=== PATIENT | female | born 1950 | race Caucasian/White ===

== ENCOUNTER 2020-01-17 23:19 | Emergency (ER) | payer OTHER, SELFPAY ==
[2020-01-17 23:24] VITALS: BP 117/65; PULSE 85; RESP 16; TEMP 36.7; O2SAT 100
--- NOTE | 2020-01-17 23:26 | ED.FEMALEGU ---
HPI - Female Genitourinary General Chief complaint: Urogenital-Female Stated complaint: i have some kind of uti Time Seen by Provider: 01/17/20 23:25 Source: patient and RN notes reviewed Mode of arrival: EMS Limitations: no limitations History of Present Illness HPI Narrative: Pt is a 69 y/o female who presents to the ED with c/o a UTI that began (01/12/20) night. Pt states that she did not go to her doctor's appointment because she overslept. Pt states that she has been taking abx for her sx, but she is unable to clarify which abx she is taking. Pt has a hx of CHF and she states that she feels full. Pt also reports fever, dizziness, dyspnea, and vaginal pain, but denies nausea, vomiting, and diarrhea. MD elicited complaint: UTI Onset (ago): day(s) (5) Location of symptoms: vaginal Associated symptoms: shortness of breath and other (vaginal pain, fever, dizziness) Possible : postmenopausal Related Data Home Medications Medication Instructions Recorded Confirmed albuterol sulfate INHALATION 01/18/20 amoxicillin 01/18/20 apixaban [Eliquis] mg 01/18/20 atorvastatin 01/18/20 bupropion HCl PO 01/18/20 carvedilol 01/18/20 fluoxetine mg 01/18/20 furosemide 01/18/20 methylprednisolone mg 01/18/20 nitrofurantoin monohyd/m-cryst 01/18/20 omeprazole 01/18/20 phenazopyridine 01/18/20 sotalol 01/18/20 spironolactone 01/18/20 valacyclovir 01/18/20 Allergies Allergy/AdvReac Type Severity Reaction Status Date / Time No Known Allergies Allergy Unverified 01/18/20 00:14 Review of Systems Review of Systems: All systems reviewed & are unremarkable except as noted in HPI and below Constitutional: Constitutional: Reports fever(s) Respiratory: Respiratory: Reports dyspnea Gastrointestinal: Gastrointestinal: Denies diarrhea, Denies nausea and Denies vomiting Genitourinary: Genitourinary: Reports other (vaginal pain) Neurologic: Reports dizziness PMFSH Past Medical History Medical History (Updated 01/17/20 @ 23:37 by Stella Cota) Anxiety Arthritis ASD (atrial septal defect) Borderline diabetic Cataracts, bilateral CHF (congestive heart failure) Depression Eczema GERD (gastroesophageal reflux disease) Hemorrhoid HTN (hypertension) Hyperlipidemia Mitral valve prolapse Pacemaker Post-menopausal Psoriasis (a type of skin inflammation) Rectal polyp Seasonal allergies Skin cancer Surgical History Surgical History (Updated 01/17/20 @ 23:37 by Stella Cota) H/O congenital atrial septal defect (ASD) repair H/O hemorrhoidectomy History of spinal surgery L4-L5 screws History of tubal ligation Hx of cataract removal with insertion of prosthetic lens Hx of section Hx of tonsillectomy Family History Family History (Updated 06/29/14 @ 07:13 by DOCTOR UNKNOWN) Sibling Hypertension Father Acute myocardial infarction Other Diabetes mellitus Family history of cardiovascular disease Social History Social History (Updated 01/17/20 @ 23:38 by Stella Cota) Smoking status: Unknown if ever smoked Alcohol intake: current Exam Narrative: Exam Narrative: GENERAL: Well-appearing, well-nourished, and in no acute distress. HEAD: Normocephalic, atraumatic. EYES: PERRLA and EOMI. ENT: Nares clear, Mucous membranes moist. NECK: Supple. CHEST: Clear to auscultation. No respiratory distress. HEART: Regular rate and rhythm. No murmur heard. Normal peripheral pulses. ABDOMEN: Soft, non tender, non distended, mild supra pubic pain and tenderness normal active bowel sounds. EXTREMITIES: Normal range of motion. No edema. SKIN: Warm, dry, no rash. NEURO: No focal deficits. Alert and oriented x3. PSYCH: Normal mood and affect. Course Vital Signs Vital signs: Vital Signs Temperature 36.7 C 01/17/20 23:24 Pulse Rate 85 01/17/20 23:24 Respiratory Rate 16 01/17/20 23:24 Blood Pressure 117/65 01/17/20 23:24 Pulse Oximetry 10
[2020-01-18 00:01] VITALS: BP 118/70; PULSE 70; RESP 16; O2SAT 95
[2020-01-18 00:03] LABS: Add Urine Microscopic? YES; Appearance Urine Clear (Clear); Bacteria Urine Trace /hpf; Bilirubin Urine Negative (Negative); Blood Urine 2+ (Negative); Color Urine Amber (Yellow); Glucose Urine UA Negative (Negative); Ketones Urine Negative (Negative); Leukocyte Esterase Ur Negative LEU/UL (Negative); Mucus Urine Rare /lpf; Nitrate Urine Positive (Negative); Protein Urine 1+ mg/dL (Negative); RBC Urine 21-50 /hpf (0-2); Specific Grav Ur 1.012 (1.001-1.035); Squamous Epithelial Cell Urine Many /hpf (Few)
[2020-01-18 00:06] LABS: Basophils Percent Auto 0.4 % (0.2-1.2); Eosinophils Percent Auto 0.1 % (0-4.4); Hematocrit 36.5 % (37.0-47.0); Hemoglobin 12.1 g/dL (12.0-15.0); Immature Granulocyte Absolute 0.06 K/mm3 (0.00-0.031); Immature Granulocyte Percent A 0.6 % (0-0.5); Lymphocytes Absolute Auto 0.38 K/mm3 (0.9-3.2); Lymphocytes Percent Auto 4.1 % (18.3-44.2); Mean Corpuscular HGB Conc 33.2 g/dl (32-36); Mean Corpuscular Hemoglobin 30.9 pg (26-34); Mean Corpuscular Volume 93.4 fl (80-100); Mean Platelet Volume 10.6 fl (7.4-10.4); Monocytes Absolute Auto 0.6 K/mm3 (0.1-0.6); Monocytes Percent Auto 6.1 % (2.6-8.5); Neutrophils Absolute Auto 8.3 K/mm3 (1.3-6.7); Neutrophils Percent Auto 88.7 % (45.5-73.1); Platelet Count Result 184 k/mm3 (150-375); Red Blood Count 3.91 M/mm3 (4.2-5.4); Red Cell Distribution Width 13.5 % (11.5-14.5); White Blood Count 9.3 K/mm3 (4.5-10.0)
[2020-01-18 00:26] LABS: NT Pro B Type Natriuretic Pept 1900 PG/ML (5-100)
[2020-01-18] MEDS: FLUCONAZOLE 150 MG TABLET PO (01:04)
[2020-01-18 01:10] VITALS: BP 148/80; PULSE 72; RESP 16; TEMP 36.6; O2SAT 96
[2020-01-18 01:14] LABS: Blood Urea Nitrogen 54 mg/dL (7-17); Calcium 8.9 mg/dL (8.4-10.2); Carbon Dioxide 24 mmol/L (22-30); Chloride 97 mmol/L (98-107); Estimated CRCL calculation 25 ml/min; Estimated Glomerular Filt Rate 23; Glucose 121 mg/dL (65-105); Potassium 4.5 mmol/L (3.4-5.0); Sodium 132 mmol/L (137-145)
== END 2020-01-18 01:12 | disposition home or self-care (01) ==
PROVIDERS: Emergency Provider Family Medicine; PCP Nurse Practitioner Family
DX: N39.0 Urinary tract infection, site not specified (principal); I50.9 Heart failure, unspecified; M19.90 Unspecified osteoarthritis, unspecified site; Q21.1 Atrial septal defect; R73.03 Prediabetes; K21.9 Gastro-esophageal reflux disease without esophagitis; I11.0 Hypertensive heart disease with heart failure; E78.5 Hyperlipidemia, unspecified; I34.1 Nonrheumatic mitral (valve) prolapse; Z95.0 Presence of cardiac pacemaker; Z85.828 Personal history of other malignant neoplasm of skin; Z87.19 Personal history of other diseases of the digestive system; Z98.49 Cataract extraction status, unspecified eye; Z96.1 Presence of intraocular lens
CPT/HCPCS: 36415; 80048; 81001; 83880; 85025; 87086; 87088; 96374; 99284; A9270; J0696

== ENCOUNTER 2020-06-24 17:06 | Emergency (ER) | payer OTHER, SELFPAY ==
[2020-06-24] VITALS (10 sets, daily range): BP systolic 107–144; BP diastolic 60–74; PULSE 68–96; RESP 10–20; TEMP 36.8; O2SAT 88–97
--- NOTE | ~2020-06-24 | CT_ITS ---
EXAMINATION: CT brain wo con DATE: 06/24/2020 17:35 INDICATION: Head injury post fall in an anticoagulated patient presenting with subsequent dizziness. TECHNIQUE: Computed tomography (CT) of the head was performed without intravenous contrast. Sagittal and coronal reconstructions were performed. The mA was adjusted according to patient size. Iterative reconstruction technique was employed. The dose-length product was 605.33 mGy-cm. COMPARISON: None FINDINGS: Small scalp contusion and laceration with few tiny foci of subcutaneous gas in the right frontal lang on. No fracture. No acute intracranial hemorrhage, acute infarction or abnormal extra axial fluid col lection. There is mild scattered white matter hypoattenuation consistent with chronic small vessel is chemic disease. Ventricles are normal and symmetric. No mass/mass effect. Hyperostosis frontalis. Ch anges of bilateral intraocular lens replacement. The orbits, paranasal sinuses and mastoid air cells are normal. Intracranial calcified cerebral atherosclerosis is noted. IMPRESSION: 1. Right frontal scalp contusion and laceration. No fracture or acute intracranial process. 2. Mild scattered white matter hypoattenuation consistent with chronic small vessel ischemic disease. Reviewed, dictated and finalized at location A. IMPRESSION: 1. Right frontal scalp contusion and laceration. No fracture or acute intracran ial process. 2. Mild scattered white matter hypoattenuation consistent with chronic small ve ssel ischemic disease.
--- NOTE | 2020-06-24 17:24 | ECG_ITS ---
Measurements Intervals [place] Rate: 71 P: -20 CO: 341 QRS: -17 QRSD: 133 T: 30 QT: 442 QTc: 481 Interpretive Statements ELECTRONIC ATRIAL PACEMAKER RIGHT BUNDLE BRANCH BLOCK LOW VOLTAGE- PRECORDIAL LEADS BASELINE ARTIFACT- I, II, III, AVR, AVL, AVF ABNORMAL ECG Electronically Signed On 06-25-2020 6:57:33 CDT by Albert Rodrigez D.O.
--- NOTE | 2020-06-24 17:27 | ED.SYNCOPE ---
HPI - Syncope General Chief Complaint: Syncope Stated Complaint: dizzy, fall, head injury Time Seen by Provider: 06/24/20 17:11 History of Present Illness HPI narrative: Syncopal episode in the shower today. She had just stood up a few moments prior and she was feeling light headed. She fell and struck her forehead. She has a h/o orthostatic hypotension and CHF. No CP, SOB. She has a follow-up appointment [facility] cardiology in 3 days. Related Data Home Medications Medication Instructions Recorded Confirmed albuterol sulfate INHALATION 01/18/20 amoxicillin 01/18/20 apixaban [Eliquis] mg 01/18/20 atorvastatin 01/18/20 bupropion HCl PO 01/18/20 carvedilol 01/18/20 fluoxetine mg 01/18/20 furosemide 01/18/20 methylprednisolone mg 01/18/20 nitrofurantoin monohyd/m-cryst 01/18/20 omeprazole 01/18/20 phenazopyridine 01/18/20 sotalol 01/18/20 spironolactone 01/18/20 valacyclovir 01/18/20 vitamin D3-vitamin K2 tablet PO 06/24/20 Allergies Allergy/AdvReac Type Severity Reaction Status Date / Time No Known Allergies Allergy Unverified 01/18/20 00:14 Review of Systems Review of Systems: All systems reviewed & are unremarkable except as noted in HPI and below Constitutional: Constitutional: Denies chills, Denies fever(s) and Denies weakness Cardiovascular: Cardiovascular: Denies chest pain Respiratory: Respiratory: Denies dyspnea Gastrointestinal: Gastrointestinal: Denies abdominal pain, Denies nausea and Denies vomiting Musculoskeletal: Musculoskeletal: Denies back pain Neurologic: Reports syncope and Reports headache(s) [facility] Past Medical History Medical History Anxiety Arthritis ASD (atrial septal defect) Borderline diabetic Cataracts, bilateral CHF (congestive heart failure) Depression Eczema GERD (gastroesophageal reflux disease) Hemorrhoid HTN (hypertension) Hyperlipidemia Mitral valve prolapse Pacemaker Post-menopausal Psoriasis (a type of skin inflammation) Rectal polyp Seasonal allergies Skin cancer Surgical History Surgical History H/O congenital atrial septal defect (ASD) repair H/O hemorrhoidectomy History of spinal surgery L4-L5 screws History of tubal ligation Hx of cataract removal with insertion of prosthetic lens Hx of section Hx of tonsillectomy Family History Family History Sibling Hypertension Father Acute myocardial infarction Other Diabetes mellitus Family history of cardiovascular disease Social History Social History Smoking status: Unknown if ever smoked Alcohol intake: current Gender identity (if verbalized by the patient): Female Sexual Orientation (if Verbalized by the Patient): Straight or Heterosexual Exam Const: General: healthy appearing, no acute distress and alert Orientation/consciousness: patient oriented x3 HENMT: Other: 3 cm laceration above the right eyebrow Eyes: Pupils: Equal, round and reactive pupils present EOM: EOMs intact bilaterally Neck: Neck: normal visual inspection and no lymphadenopathy Chest: Chest palpation & inspection: no tenderness Resp: Effort & Inspection: normal respiratory effort Auscultation: clear to auscultation bilaterally, no rales, no rhonchi and no wheezes Cardio: Jugular venous distension: no JVD Rate: regular rate Rhythm: regular rhythm Heart sounds: no murmurs GI: Inspection: non-distended GI Palp: Yes Soft to palpation and No Tenderness to palpation present (GI) Skin: General skin exam: normal color Neuro: General: patient oriented x3, moves all extremities and CN's II-XI intact bilaterally Speech: normal speech Extrem: General: normal to inspection and no edema Psych: Appearance: well kempt Affect: normal affect Course
[2020-06-24 17:48] LABS: Basophils Percent Auto 0.4 % (0.2-1.2); Eosinophils Percent Auto 0.3 % (0-4.4); Hematocrit 40.9 % (37.0-47.0); Immature Granulocyte Absolute 0.04 K/mm3 (0.00-0.031); Immature Granulocyte Percent A 0.4 % (0-0.5); Lymphocytes Absolute Auto 1.21 K/mm3 (0.9-3.2); Lymphocytes Percent Auto 12.8 % (18.3-44.2); Mean Corpuscular HGB Conc 34.2 g/dl (32-36); Mean Corpuscular Hemoglobin 32.2 pg (26-34); Monocytes Absolute Auto 0.5 K/mm3 (0.1-0.6); Monocytes Percent Auto 5.6 % (2.6-8.5); Neutrophils Absolute Auto 7.6 K/mm3 (1.3-6.7); Neutrophils Percent Auto 80.5 % (45.5-73.1); Platelet Count Result 330 k/mm3 (150-375); Red Blood Count 4.35 M/mm3 (4.2-5.4); Red Cell Distribution Width 13.2 % (11.5-14.5); White Blood Count 9.4 K/mm3 (4.5-10.0)
[2020-06-24 17:56] LABS: INR 1.5; Prothrombin Time 17.5 Seconds (11.1-14.7)
[2020-06-24 17:57] LABS: Anion Gap 9 mmol/L (8-16); Blood Urea Nitrogen 29 mg/dL (7-17); Calcium 9.5 mg/dL (8.4-10.2); Carbon Dioxide 25 mmol/L (22-30); Chloride 101 mmol/L (98-107); Estimated CRCL calculation 31 ml/min; Estimated Glomerular Filt Rate 32; Glucose 124 mg/dL (65-105); Potassium 3.9 mmol/L (3.4-5.0); Sodium 135 mmol/L (137-145)
[2020-06-24 18:09] LABS: NT Pro B Type Natriuretic Pept 255 PG/ML (5-100); Troponin I < 0.012 ng/mL (0.000-0.034)
== END 2020-06-24 19:14 | disposition home or self-care (01) ==
PROVIDERS: Emergency Provider Emergency Medicine; PCP Nurse Practitioner Family
DX: R55 Syncope and collapse (principal); E86.0 Dehydration; S01.111A Laceration without foreign body of right eyelid and periocular area, initial encounter; M19.90 Unspecified osteoarthritis, unspecified site; I50.9 Heart failure, unspecified; I11.0 Hypertensive heart disease with heart failure; E78.5 Hyperlipidemia, unspecified; I34.1 Nonrheumatic mitral (valve) prolapse; K21.9 Gastro-esophageal reflux disease without esophagitis; F32.9 Major depressive disorder, single episode, unspecified; F41.9 Anxiety disorder, unspecified; Z95.0 Presence of cardiac pacemaker; Z85.828 Personal history of other malignant neoplasm of skin; Z79.01 Long term (current) use of anticoagulants; Z98.49 Cataract extraction status, unspecified eye; Z96.1 Presence of intraocular lens; W18.39XA Other fall on same level, initial encounter
CPT/HCPCS: 12013; 36415; 70450; 80048; 83880; 84484; 85025; 85610; 85730; 93005; 99284

== ENCOUNTER 2021-10-17 15:03 | Outpatient (CLI) | payer OTHER, SELFPAY ==
--- NOTE | ~2021-10-17 | MM_ITS ---
EXAMINATION: MM screening bert BI w estevan HISTORY: Screening mammogram TECHNIQUE: Craniocaudal and mediolateral oblique 3-D tomosynthesis images were obtained and synthetic 2-D images were generated. CAD analysis was submitted and interpreted. COMPARISON: 02/24/2018 screening mammogram BREAST PARENCHYMAL COMPOSITION: There are scattered areas of fibroglandular density. FINDINGS: There is no evidence of suspicious mass, calcification, or architectural distortion to sugg est malignancy in either breast. There has been no suspicious interval change. IMPRESSION: 1. No mammographic evidence of malignancy. 2. Recommend routine screening mammography in one year. BI-RADS Category 1: Negative Reviewed, dictated and finalized at location A. 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
== END 2021-10-17 15:04 | disposition home or self-care (01) ==
LOC: ANHIMG 15:06
PROVIDERS: PCP Nurse Practitioner Family; Visit Provider Nurse Practitioner Family
DX: Z12.31 Encounter for screening mammogram for malignant neoplasm of breast (principal)
CPT/HCPCS: 77063; 77067

== ENCOUNTER 2022-07-22 12:41 | Emergency (ER) | payer OTHER, SELFPAY ==
--- NOTE | ~2022-07-22 | CT_ITS ---
EXAMINATION: CT brain wo con DATE: 07/22/2022 13:20 INDICATION: Head injury. Headache. TECHNIQUE: Computed tomography (CT) of the head was performed without intravenous contrast. The mA wa s adjusted according to patient size. Iterative reconstruction technique was employed. The dose-lengt h product was 605.33 mGy-cm. COMPARISON: Head CT 06/24/2020 FINDINGS: There are scattered areas of low attenuation in the cerebral white matter. There is no intr acranial hemorrhage, acute infarction, or abnormal intracranial mass lesion. The ventricles are samir l in size. There are likely changes of ocular lens replacement surgeries. There is mild mucosal thick ening in the ethmoid sinuses. The mastoid air cells are normal. IMPRESSION: 1. Stable mild nonspecific cerebral white matter disease, which likely represents chronic small vesse l ischemic disease. Reviewed, dictated and finalized at location A. IMPRESSION: 1. Stable mild nonspecific cerebral white matter disease, which likely represen ts chronic small vessel ischemic disease.
[2022-07-22 12:43] VITALS: BP 152/55; PULSE 71; RESP 20; TEMP 37.2; O2SAT 98
--- NOTE | 2022-07-22 14:07 | ED.FALL ---
HPI - Fall General Chief Complaint: Fall Stated Complaint: fall, head trauma, back pain Time Seen by Provider: 07/22/22 13:00 History of Present Illness HPI Narrative: Patient is a 71-year-old female who presents ER status post fall 2 days ago. Patient was walking when she fell backwards and struck her head. No LOC. She does take Eliquis. Over the last 2 days she developed increased aching over the neck and back and continues to have some aching in the back of her head. No change in hearing or vision. No weakness in arm or leg. Patient has been taking Tylenol with only mild improvement of discomfort. Related Data Home Medications Medication Instructions Recorded Confirmed albuterol sulfate 90 mcg/actuation inhalation 01/18/20 aerosol inhaler amoxicillin 500 mg capsule 01/18/20 apixaban 5 mg tablet (Eliquis) mg 01/18/20 atorvastatin 40 mg tablet 01/18/20 bupropion HCl 150 mg tablet,12 hr PO 01/18/20 sustained-release carvedilol 25 mg tablet 01/18/20 fluoxetine 40 mg capsule mg 01/18/20 furosemide 40 mg tablet 01/18/20 methylprednisolone 4 mg tablets in mg 01/18/20 a dose pack nitrofurantoin 01/18/20 monohydrate/macrocrystals 100 mg capsule omeprazole 40 mg capsule,delayed 01/18/20 release phenazopyridine 100 mg tablet 01/18/20 sotalol 120 mg tablet 01/18/20 spironolactone 25 mg tablet 01/18/20 valacyclovir 500 mg tablet 01/18/20 cholecalciferol (vit D3) 5,500 tablet PO 06/24/20 unit-vit K2 200 mcg tablet Allergies Allergy/AdvReac Type Severity Reaction Status Date / Time No Known Allergies Allergy Verified 07/22/22 12:54 Review of Systems Review of Systems: All systems reviewed & are unremarkable except as noted in HPI and below Constitutional: Constitutional: Denies chills, Denies fatigue and Denies fever(s) Eyes: Eyes: Denies change in vision Musculoskeletal: Musculoskeletal: Reports back pain, Reports myalgias, Denies arthralgias and Denies joint swelling Neurologic: Denies syncope, Reports headache(s), Denies focal weakness and Denies numbness [facility] Past Medical History Medical History (Updated 07/22/22 @ 14:10 by Minh Perales MD) Anxiety Arthritis ASD (atrial septal defect) Borderline diabetic Cataracts, bilateral CHF (congestive heart failure) Depression Eczema GERD (gastroesophageal reflux disease) Hemorrhoid HTN (hypertension) Hyperlipidemia Mitral valve prolapse Pacemaker Post-menopausal Psoriasis (a type of skin inflammation) Rectal polyp Seasonal allergies Skin cancer Surgical History Surgical History H/O congenital atrial septal defect (ASD) repair H/O hemorrhoidectomy History of spinal surgery L4-L5 screws History of tubal ligation Hx of cataract removal with insertion of prosthetic lens Hx of section Hx of tonsillectomy Family History Family History Sibling Hypertension Father Acute myocardial infarction Other Diabetes mellitus Family history of cardiovascular disease Social History Social History Smoking status: Unknown if ever smoked Alcohol intake: current Gender identity (if verbalized by the patient): Female Sexual Orientation (if Verbalized by the Patient): Straight or Heterosexual Exam Narrative: GENERAL: Well-appearing, well-nourished, and in no acute distress. HEAD: Normocephalic, atraumatic. NECK: Supple. No midline tenderness of the cervical spine. Normal range of motion. CHEST: Clear to auscultation. No respiratory distress. HEART: Regular rate and rhythm. Normal peripheral pulses. Back: No reproducible midline tenderness to the T/L-spine. No reproducible tenderness of the paraspinal musculature of the same levels. EXTREMITIES: Normal range of motion. No edema. SKIN: Warm, dry, no rash. NEURO: Alert
== END 2022-07-22 14:23 | disposition home or self-care (01) ==
PROVIDERS: Emergency Provider Emergency Medicine; PCP Nurse Practitioner Family
DX: S09.90XA Unspecified injury of head, initial encounter (principal); W19.XXXA Unspecified fall, initial encounter; M54.6 Pain in thoracic spine; M54.50 Low back pain, unspecified; M19.90 Unspecified osteoarthritis, unspecified site; I11.0 Hypertensive heart disease with heart failure; I50.9 Heart failure, unspecified; K21.9 Gastro-esophageal reflux disease without esophagitis; E78.5 Hyperlipidemia, unspecified; I34.1 Nonrheumatic mitral (valve) prolapse; Z95.0 Presence of cardiac pacemaker; Z85.828 Personal history of other malignant neoplasm of skin; F41.9 Anxiety disorder, unspecified; F32.A Depression, unspecified
CPT/HCPCS: 70450; 99284

== ENCOUNTER 2023-02-24 14:11 | Outpatient (CLI) | payer OTHER, SELFPAY ==
--- NOTE | ~2023-02-24 | US_ITS ---
EXAMINATION: US art doppler w press LE BI DATE: 02/24/2023 15:24 INDICATION: Peripheral vascular disease. TECHNIQUE: Segmental pressures and plethysmographic and Doppler waveforms of the brachial and lower e xtremity arteries were obtained. COMPARISON: None. FINDINGS: Right and left brachial artery pressures of 123 mm Hg and 121 mm Hg, respectively, are concordant (no rmal difference <= 30 mmHg). The right and left high-thigh pressure indices are 1.20 and 1.31, respec tively (normal > 1.2). The right ankle-brachial index (SHELDON) is 1.21 (normal >= 0.9-1). The right great toe-brachial index (T BI) is 0.83 (normal >= 0.6-0.8). The right lower extremity segmental pressure gradients are normal (n ormal gradients <= 20-30 mmHg between adjacent levels on the same leg or the same levels on the two l egs). Arterial waveforms are triphasic at the right superficial femoral artery and biphasic at the re maining biphasic right lower limb with brisk systolic upstrokes throughout. The left SHELDON is 1.23. The left TBI is 0.55. The left lower extremity segmental pressure gradients are mildly increased between the left dorsalis pedis artery and the left [id number] popliteal artery . Arterial waveforms are triphasic at the left common femoral, popliteal and dorsalis pedis arteries and biphasic at the left superficial femoral and posterior tibial arteries, all with brisk systolic u pstrokes. IMPRESSION: 1. Mild arterial occlusive disease to the left lower limb with normal SHELDON but mildly decreased left T BI. 2. No significant arterial occlusive disease to the right lower limb with normal right SHELDON and TBI. Reviewed, dictated and finalized at location A. IMPRESSION: 1. Mild arterial occlusive disease to the left lower limb with normal SHELDON but m ildly decreased left TBI. 2. No significant arterial occlusive disease to the right lower limb with samir l right SHELDON and TBI.
== END 2023-02-24 14:12 | disposition home or self-care (01) ==
PROVIDERS: PCP Emergency Medicine; Visit Provider Emergency Medicine
DX: I73.9 Peripheral vascular disease, unspecified (principal)
CPT/HCPCS: 93923

== ENCOUNTER 2023-09-08 11:36 | Outpatient (CLI) | payer OTHER, SELFPAY ==
--- NOTE | ~2023-09-08 | MM_ITS ---
EXAMINATION: MM screening bert BI w estevan HISTORY: Screening TECHNIQUE: Craniocaudal and mediolateral oblique 3-D tomosynthesis images were obtained and synthetic 2-D images were generated. CAD analysis was submitted and interpreted. COMPARISON: Comparison to multiple prior studies sequentially, with oldest reviewed study dated 02/24. BREAST PARENCHYMAL COMPOSITION: There are scattered areas of fibroglandular density. FINDINGS: There is no evidence of suspicious mass, calcification, or architectural distortion to sugg est malignancy in either breast. There has been no suspicious interval change. IMPRESSION: 1. No mammographic evidence of malignancy. 2. Recommend routine screening mammography in one year. BI-RADS Category 1: Negative Reviewed, dictated and finalized at location A. 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
== END 2023-09-08 11:37 | disposition home or self-care (01) ==
LOC: CHSIMG 11:38
PROVIDERS: PCP Emergency Medicine; Visit Provider Emergency Medicine
DX: Z12.31 Encounter for screening mammogram for malignant neoplasm of breast (principal)
CPT/HCPCS: 77063; 77067

== ENCOUNTER 2023-09-22 01:23 | Day surgery (SDC) | payer OTHER, SELFPAY ==
[2023-09-17 13:40] VITALS: BMI 28.3
--- NOTE | 2023-09-18 14:09 | SUR.PREOP ---
Patient called regarding upcoming procedure. No answer- message left with arrival time and phone number.
[2023-09-22 07:24] VITALS: BP 141/63; PULSE 91; RESP 18; TEMP 36.3; O2SAT 91; BMI 28.0
--- NOTE | 2023-09-22 07:30 | PM.HPGS ---
History of Present Illness History of Present Illness Consent: Risks, benefits, and alternatives have been discussed and questions answered. Patient agrees to proceed with procedure. Chief complaint: neoplasm screening Narrative: Angela Field is a 73 year old female Presents for screening colonoscopy. Patient's current weight appetite and bowel movements are normal. Patient denies abdominal pain. She does notice occasional bright red blood per rectum attributed to hemorrhoids. Patient reports in the distant past she was found to have colon polyps. Most recent colonoscopy 2010. She may have had a benign hyperplastic polyp. Review of Systems Review of Systems: Review of systems noncontributory. [facility] Past Medical History Medical History Anxiety Arthritis ASD (atrial septal defect) Borderline diabetic Cataracts, bilateral CHF (congestive heart failure) Depression Eczema GERD (gastroesophageal reflux disease) Hemorrhoid HTN (hypertension) Hyperlipidemia Mitral valve prolapse Pacemaker Post-menopausal Psoriasis (a type of skin inflammation) Rectal polyp Seasonal allergies Skin cancer Surgical History Surgical History H/O congenital atrial septal defect (ASD) repair H/O hemorrhoidectomy History of spinal surgery L4-L5 screws History of tubal ligation Hx of cataract removal with insertion of prosthetic lens Hx of section Hx of tonsillectomy Family History Family History Sibling Hypertension Father Acute myocardial infarction Other Diabetes mellitus Family history of cardiovascular disease Social History Social History Smoking status: Never smoker Alcohol intake: never Substance use: never Substance use type: does not use Lack of Transportation: No Lack of Food: Never True Current Housing: I Have Housing Concerned About Future Housing: No Difficulty Paying Gas/Electric Bills: No Difficulty Paying for Meds: No Currently Unemployed: No Education: Decline to Answer Difficulty w/ Childcare or Family Care: No Living arrangements: with family Gender identity (if verbalized by the patient): Female Sexual Orientation (if Verbalized by the Patient): Straight or Heterosexual Spiritual care concerns: No Meds Home Medications and Allergies Home Medications Medication Instructions Recorded Confirmed Type captopril 25 mg tablet 25 mg PO HS 09/02/22 09/17/23 History apixaban 5 mg tablet (Eliquis) 5 mg PO BID 12/31/22 09/17/23 History aspirin 81 mg tablet,delayed 81 mg PO DAILY 12/31/22 09/17/23 History release atomoxetine 60 mg capsule 60 mg PO QAM 12/31/22 09/17/23 History atorvastatin 80 mg tablet 80 mg PO QHS 12/31/22 09/17/23 History carvedilol 6.25 mg tablet 6.25 mg PO QAM 12/31/22 09/17/23 History cholecalciferol (vitamin D3) 1,250 1,250 mcg PO WEEKLY 12/31/22 09/17/23 History mcg (50,000 unit) capsule fluoxetine 40 mg capsule 40 mg PO QAM 12/31/22 09/17/23 History furosemide 40 mg tablet 40 mg PO BID 12/31/22 09/17/23 History omeprazole 40 mg capsule,delayed 40 mg PO DAILY 12/31/22 09/17/23 History release sotalol 120 mg tablet 120 mg PO QPM 12/31/22 09/17/23 History spironolactone 25 mg tablet 25 mg PO QAM 12/31/22 09/17/23 History valacyclovir 500 mg tablet 500 mg PO DAILY 12/31/22 09/17/23 History [facility] Rx Plus Lancet) [facility] Verio test strips) dapagliflozin propanediol 10 mg 10 mg PO QAM #90 tabs 04/29/23 09/17/23 Rx tablet (Farxiga) bupropion HCl 150 mg tablet,12 hr See Rx Instructions .Route 08/21/23 09/17/23 Rx sustained-release .COMPLEX #180 tabs carvedilol 6.25 mg tablet 12.5 mg PO QPM 09/17/23 1
[2023-09-22 07:34] LABS: Glucose Point of Care 89 mg/dl (65-105)
[2023-09-22] MEDS: LACTATED RINGERS 1,000 ML 150 ML IV CONT (07:41)
--- NOTE | 2023-09-22 08:14 | WPDANESEPPF ---
Anes - Initial Pre Proc Eval Procedure: Operation Date: 09/22/23 08:30 Proposed Procedures p Screening Colonoscopy - Jori Greer MD Date/Time: 09/22/23 08:14 Surgeon: Jori Greer MD Pre Op Diagnosis: neoplasm screening Patient Data Age: 73 Gender: F Height: 1.63 m Weight: 74 kg Last Vital Signs Temp 97.4 F L 09/22/23 07:24 Pulse 91 09/22/23 07:24 Resp 18 09/22/23 07:24 BP 141/63 H 09/22/23 07:24 Pulse Ox 91 09/22/23 07:24 O2 Del Method Room Air 09/22/23 07:24 Allergies Allergy/AdvReac Type Severity Reaction Status Date / Time adhesive tape Allergy Intermediate Rash Verified 09/17/23 13:42 Home Medications Medication Instructions Recorded Confirmed Type captopril 25 mg tablet 25 mg PO HS 09/02/22 09/17/23 History apixaban 5 mg tablet (Eliquis) 5 mg PO BID 12/31/22 09/17/23 History aspirin 81 mg tablet,delayed 81 mg PO DAILY 12/31/22 09/17/23 History release atomoxetine 60 mg capsule 60 mg PO QAM 12/31/22 09/17/23 History atorvastatin 80 mg tablet 80 mg PO QHS 12/31/22 09/17/23 History carvedilol 6.25 mg tablet 6.25 mg PO QAM 12/31/22 09/17/23 History cholecalciferol (vitamin D3) 1,250 1,250 mcg PO WEEKLY 12/31/22 09/17/23 History mcg (50,000 unit) capsule fluoxetine 40 mg capsule 40 mg PO QAM 12/31/22 09/17/23 History furosemide 40 mg tablet 40 mg PO BID 12/31/22 09/17/23 History omeprazole 40 mg capsule,delayed 40 mg PO DAILY 12/31/22 09/17/23 History release sotalol 120 mg tablet 120 mg PO QPM 12/31/22 09/17/23 History spironolactone 25 mg tablet 25 mg PO QAM 12/31/22 09/17/23 History valacyclovir 500 mg tablet 500 mg PO DAILY 12/31/22 09/17/23 History lancets 30 gauge (OneTouch Delica #100 ea 04/27/23 Rx Plus Lancet) blood sugar diagnostic (OneTouch #300 strips 04/28/23 Rx Verio test strips) dapagliflozin propanediol 10 mg 10 mg PO QAM #90 tabs 04/29/23 09/17/23 Rx tablet (Farxiga) bupropion HCl 150 mg tablet,12 hr See Rx Instructions .Route 08/21/23 09/17/23 Rx sustained-release .COMPLEX #180 tabs carvedilol 6.25 mg tablet 12.5 mg PO QPM 09/17/23 09/17/23 History potassium chloride 20 mEq 20 meq PO QPM 09/17/23 09/17/23 History tablet,extended release(part/cryst) (Klor-Con M) potassium chloride 20 mEq 40 meq PO QAM 09/17/23 09/17/23 History tablet,extended release(part/cryst) (Klor-Con M) Laboratory Tests 09/22/23 07:32 POC Capillary Glucose 89 mg/dl (65-105) Patient hx anesthesia problems: none Family hx anesthesia problems: none Results Review: All pre-operative results and documents have been reviewed as part of the pre-operative evaluation. [facility] Past Medical History Medical History Anxiety Arthritis ASD (atrial septal defect) Borderline diabetic Cataracts, bilateral CHF (congestive heart failure) Depression Eczema GERD (gastroesophageal reflux disease) Hemorrhoid HTN (hypertension) Hyperlipidemia Mitral valve prolapse Pacemaker Post-menopausal Psoriasis (a type of skin inflammation) Rectal polyp Seasonal allergies Skin cancer Surgical History Surgical History H/O congenital atrial septal defect (ASD) repair H/O hemorrhoidectomy History of spinal surgery L4-L5 screws History of tubal ligation Hx of cataract removal with insertion of prosthetic lens Hx of section Hx of tonsillectomy Family History Family History Sibling Hypertension Father Acute myocardial infarction Other Diabetes mellitus Family history of cardiovascular disease Social History Social History Smoking status: Never smoker Alcohol intake: never Substance use: never Substance use type: does not use Lack of Transportation: No Lack of Food: Never True Current Housi
[2023-09-22 08:46] VITALS: BP 106/42; PULSE 73; RESP 18; O2SAT 100
[2023-09-22 08:56] VITALS: BP 105/76; PULSE 72; RESP 12; O2SAT 100
[2023-09-22 09:06] VITALS: BP 119/44; PULSE 69; RESP 17; O2SAT 100
== END 2023-09-22 09:12 | disposition home or self-care (01) ==
PROVIDERS: PCP Emergency Medicine; Visit Provider Internal Medicine Gastroenterology
PROC: 0DJD8ZZ Inspection of Lower Intestinal Tract, Via Natural or Artificial Opening Endoscopic (ICD-10-PCS; CPT 45378; principal; 2023-09-22 08:30)
DX: Z12.11 Encounter for screening for malignant neoplasm of colon (principal); K64.4 Residual hemorrhoidal skin tags; K64.8 Other hemorrhoids; I50.9 Heart failure, unspecified; K21.9 Gastro-esophageal reflux disease without esophagitis; E78.5 Hyperlipidemia, unspecified; I11.0 Hypertensive heart disease with heart failure
CPT/HCPCS: 45385; 82948; 88305; J2001; J2704; J7120

== ENCOUNTER 2023-11-20 10:46 | Inpatient (IN) | payer MEDICARE, OTHER, SELFPAY ==
[2023-11-20] VITALS (11 sets, daily range): BP systolic 101–123; BP diastolic 48–65; PULSE 69–76; RESP 12–20; TEMP 36.3–36.9; O2SAT 96–100; BMI 27.8
--- NOTE | ~2023-11-20 | US_ITS ---
EXAMINATION: US venous doppler UE RT DATE: 11/24/2023 11:37 INDICATION: IV infiltration. TECHNIQUE: Paulson scale images with and without compression and Doppler images of the right upper extre mity veins were obtained. COMPARISON: None. FINDINGS: The right internal jugular vein, subclavian vein, axillary vein, brachial veins, basilic vein, radial vein, and ulnar vein are patent. There is superficial venous thrombosis of the right cephalic vein. IMPRESSION: 1. Superficial venous thrombosis of the right cephalic vein. Reviewed, dictated and finalized at location [facility]
--- NOTE | ~2023-11-20 | XR_ITS ---
EXAMINATION: XR chest 2V DATE: 11/20/2023 16:41 INDICATION: Shortness of breath TECHNIQUE: AP and lateral views of the chest are obtained. COMPARISON: 06/14/2018 FINDINGS: The lungs are free of acute opacities. No pleural effusion or pneumothorax. The cardiomedia stinal silhouette is normal. There is severe thoracic spondylosis. Median sternotomy wires are consis tent with prior cardiac surgery. There is a pacemaker of the left chest wall. IMPRESSION: 1. No acute cardiopulmonary abnormality. Reviewed, dictated and finalized at location [facility]
--- NOTE | 2023-11-20 11:06 | ECG_ITS ---
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
[2023-11-20 12:55] LABS: Basophils Percent Auto 0.7 % (0.2-1.2); Eosinophils Absolute Auto 0.1 K/mm3 (0-0.3); Hematocrit 29.4 % (37.0-47.0); Hemoglobin 7.1 g/dL (12.0-15.0); Immature Granulocyte Absolute 0.01 K/mm3 (0.00-0.031); Immature Granulocyte Percent A 0.2 % (0-0.5); Lymphocytes Absolute Auto 1.76 K/mm3 (0.9-3.2); Lymphocytes Percent Auto 29.6 % (18.3-44.2); Mean Corpuscular HGB Conc 24.1 g/dl (32-36); Mean Corpuscular Hemoglobin 16.6 pg (26-34); Mean Corpuscular Volume 68.5 fl (80-100); Mean Platelet Volume 8.8 fl (7.4-10.4); Monocytes Absolute Auto 0.5 K/mm3 (0.1-0.6); Monocytes Percent Auto 7.9 % (2.6-8.5); Neutrophils Absolute Auto 3.6 K/mm3 (1.3-6.7); Neutrophils Percent Auto 60.6 % (45.5-73.1); Platelet Count Result 491 k/mm3 (150-375); Red Blood Count 4.29 M/mm3 (4.2-5.4)
[2023-11-20 13:04] LABS: Ovalocytes 1+ (NORMAL); Platelet Estimate Adequate (Adequate)
[2023-11-20 13:05] LABS: Anisocytosis 2+ (NORMAL); Hypochromasia 1+ (NORMAL); Microcytosis 1+ (NORMAL); Schistocytes 1+ (NORMAL)
[2023-11-20 13:06] LABS: Alanine Aminotransferase 14 U/L (6-35); Albumin Level 4.1 g/dL (3.5-5.1); Alkaline Phosphatase 98 U/L (38-126); Anion Gap 8 mmol/L (8-16); Aspartate Amino Transferase 20 U/L (14-36); Bilirubin,Total 0.5 mg/dL (0.2-1.3); Blood Urea Nitrogen 19 mg/dL (7-17); Calcium 9.5 mg/dL (8.4-10.2); Carbon Dioxide 28 mmol/L (22-30); Chloride 104 mmol/L (98-107); Estimated CRCL calculation 36 ml/min; Estimated Glomerular Filt Rate 44; Glucose 101 mg/dL (65-110); Potassium 3.9 mmol/L (3.4-5.0); Sodium 140 mmol/L (137-145)
--- NOTE | 2023-11-20 15:30 | ED.DIZZY ---
HPI - Dizziness General Chief Complaint: Dizziness Stated Complaint: orthostatic HYpotension Time Seen by Provider: 11/20/23 15:17 History of Present Illness HPI Narrative: Patient is a 73-year-old female with history of sick sinus syndrome, pacemaker in place, on eliquis, prior ASD defect s/p repair here with dizziness and light headedness. Patient notes that she has been struggling with orthostatic hypotension, diagnosed by her primary care doctor for several years. She notes that it seems to be worsening recently. She wants our primary care doctor about a week ago, outpatient labs were ordered, they decreased her Coreg at that time. She is brought back to the clinic today given continued symptoms for a blood pressure check. Orthostatics were positive again in the clinic and she was recommended to come into the emergency department for further evaluation. She denies any chest pain, has been experiencing some shortness of breath which has also been progressive over many months. No bright red blood per rectum or black stools. No abdominal pain. Her last colonoscopy was within the last 6 months, was reportedly normal and advise she no longer needed them given her age. No vaginal bleeding, no hematuria. No trauma. No prior GI bleed, no prior need for blood transfusion. Related Data Home Medications Medication Instructions Recorded Confirmed captopril 25 mg tablet 25 mg PO HS 09/02/22 11/20/23 apixaban 5 mg tablet (Eliquis) 5 mg PO BID 12/31/22 11/20/23 aspirin 81 mg tablet,delayed 81 mg PO DAILY 12/31/22 11/20/23 release atomoxetine 60 mg capsule 60 mg PO QAM 12/31/22 11/20/23 atorvastatin 80 mg tablet 80 mg PO QHS 12/31/22 11/20/23 fluoxetine 40 mg capsule 40 mg PO QAM 12/31/22 11/20/23 furosemide 40 mg tablet 40 mg PO BID 12/31/22 11/20/23 omeprazole 40 mg capsule,delayed 40 mg PO DAILY 12/31/22 11/20/23 release sotalol 120 mg tablet 120 mg PO HS 12/31/22 11/20/23 spironolactone 25 mg tablet 25 mg PO QAM 12/31/22 11/20/23 valacyclovir 500 mg tablet 500 mg PO DAILY 12/31/22 11/20/23 potassium chloride 20 mEq 20 meq PO QPM 09/17/23 11/20/23 tablet,extended release(part/cryst) (Klor-Con M) potassium chloride 20 mEq 40 meq PO QAM 09/17/23 11/20/23 tablet,extended release(part/cryst) (Klor-Con M) carvedilol 12.5 mg tablet 6.25 mg PO QHS 11/16/23 11/20/23 carvedilol 6.25 mg tablet 3.125 mg PO QAM 11/16/23 11/20/23 Allergies Allergy/AdvReac Type Severity Reaction Status Date / Time adhesive tape Allergy Intermediate Rash Verified 11/20/23 10:34 Review of Systems Review of Systems: All systems reviewed & are unremarkable except as noted in HPI and below PMFSH Past Medical History Medical History Anxiety Arthritis ASD (atrial septal defect) Borderline diabetic Cataracts, bilateral CHF (congestive heart failure) Depression Eczema GERD (gastroesophageal reflux disease) Hemorrhoid HTN (hypertension) Hyperlipidemia Mitral valve prolapse Pacemaker Post-menopausal Psoriasis (a type of skin inflammation) Rectal polyp Seasonal allergies Skin cancer Surgical History Surgical History H/O congenital atrial septal defect (ASD) repair H/O hemorrhoidectomy History of spinal surgery L4-L5 screws History of tubal ligation Hx of cataract removal with insertion of prosthetic lens Hx of section Hx of tonsillectomy Family History Family History Sibling Hypertension Father Acute myocardial infarction Other Diabetes mellitus Family history of cardiovascular disease Social History Social History Smoking status: Never smoker Alcohol intake: never Substance use: never Substance use type: does not use Do You Feel Safe in your Home?: Yes Lack of Transpor
[2023-11-20 16:18] LABS: Troponin I < 0.012 ng/mL (0.000-0.034)
--- NOTE | 2023-11-20 16:32 | PC.NURSE ---
Pt taken to xray
--- NOTE | 2023-11-20 16:41 | PC.NURSE ---
Pt returned to room 7
[2023-11-20] MEDS: PANTOPRAZOLE SODIUM IV 40 MG VIAL IV PUSH (16:43)
[2023-11-20 17:34] LABS: Troponin I < 0.012 ng/mL (0.000-0.034)
[2023-11-20] MEDS: SODIUM CHLORIDE 0.9% IV 250 ML 30 ML IV CONT (18:23)
[2023-11-20] MEDS: TUBING, BLOOD PLUM PUMP TUBING 1 EACH XX (18:24)
[2023-11-20 21:48] LABS: Hemoglobin 8.4 g/dL (12.0-15.0)
[2023-11-21] VITALS (13 sets, daily range): BP systolic 101–143; BP diastolic 57–79; PULSE 67–78; RESP 16–20; TEMP 36.4–36.9; O2SAT 94–97
--- NOTE | 2023-11-21 05:35 | PM.IMHP ---
H&P: HPI History of Present Illness Date/Time: 11/21/23 05:35 Chief Complaint: Lightheadedness Narrative: 73-year-old female with a past medical history of pacemaker, ASD repair, atrial fibrillation with prior ablation on chronic anticoagulation with Eliquis, pre diabetes, irritable bowel syndrome with constipation, hemorrhoids, and colon polyps who presented to the ER due to frequent episodes of lightheadedness for 1 week. Patient was evaluated at physician's office and found to have positive orthostatic hypotension with associated shortness of breath. She was sent from the office for evaluation and in the ER was found to be anemic with a hemoglobin of 7.1 but no prior lab comparisons available in our system since 2019 at which time hemoglobin was 14. The patient reports that she has not been able to log into her mobile medical record. She cannot remember password. She does not know what her recent hemoglobin was from a week or so ago. She does report irritable bowel syndrome with constipation. She had a colonoscopy in September which demonstrated internal hemorrhoids and at which time she had removal of anal skin tag. She reports that she had some polyps removed. She has noticed blood-streaked stool usually after she has had hard bowel movements with her constipation. She denies any black stools. In the ER her stool was grossly normal in appearance but Hemoccult was positive. Patient also admits to not eating much meat. She reports that due to her kidneys she is not supposed to eat a large amount of meat in when she does eat meat it is not necessarily red meat. She reports that she recently has been craving spinach. She does not eat much in the way of iron rich foods. She does not take oral iron supplements. She reports that for the last several years she has had episodes of orthostatic hypotension. She does wear support socks. She recently bought I abdominal binder but has not begun using it. She reports drinking plenty of fluids but reports that ever since he was started on for C go 1 year ago she has been having increasing episodes of orthostatic symptoms with lightheadedness on standing. She will often have narrowing of her revision and be near syncopal. She at times will have episodes of confusion with her symptoms had improved after she sits or lays down. She reports that over the last 2-3 months she has had progressive dyspnea on exertion. She has only been able climb about 4 steps without sitting down and resting. She reports that even walking to the bathroom several feet across the room can make her slightly short of breath. She denies any chest pain. She has a both have repeat echocardiogram as outpatient with her locksmith at the end of the month. She sees locksmith at [place]. She has a pacemaker in place. She had outpatient event monitor a couple of months ago. She denies any lower extremity swelling. She will on rare occasion have some mild orthopnea but nothing recently. She denies any hematuria or vaginal bleeding. Review of Systems Review of Systems: 12 systems were reviewed with pertinent positives and negatives per HPI. Except as documented in the HPI, all other systems were reviewed and are negative. [facility] Past Medical History Medical History (Updated 11/21/23 @ 08:43 by Shagufta Cavanaugh DO) Anxiety Arthritis ASD (atrial septal defect) Borderline diabetic Cataracts, bilateral CHF (congestive heart failure) Chronic constipation Depression Eczema GERD (gastroesophageal reflux disease) Hemorrhoid HTN (hypertension) Hyperlipidemia Mitral valve prolapse Pacemaker Due to sick sinus syndrome Peripheral artery disease Mild arterial occlusive disease of left lower limb noted on ABIs January 2023 Post-menopausal Psoriasis (a type of skin inflammation) Rectal polyp Seasonal allergies Skin cancer Surgical History Surgical History H/O congenita
[2023-11-21 06:25] LABS: Mean Corpuscular HGB Conc 26.7 g/dl (32-36); Mean Corpuscular Hemoglobin 18.8 pg (26-34); Mean Corpuscular Volume 70.6 fl (80-100); Mean Platelet Volume 9.2 fl (7.4-10.4); Platelet Count Result 373 k/mm3 (150-375); Red Blood Count 4.25 M/mm3 (4.2-5.4); Red Cell Distribution Width 22.8 % (11.5-14.5); White Blood Count 5.8 K/mm3 (4.5-10.0)
[2023-11-21 06:37] LABS: Anion Gap 6 mmol/L (8-16); Blood Urea Nitrogen 17 mg/dL (7-17); Calcium 8.7 mg/dL (8.4-10.2); Carbon Dioxide 26 mmol/L (22-30); Chloride 109 mmol/L (98-107); Estimated CRCL calculation 43 ml/min; Estimated Glomerular Filt Rate 54; Glucose 87 mg/dL (65-110); Potassium 3.7 mmol/L (3.4-5.0); Sodium 141 mmol/L (137-145)
[2023-11-21 07:20] LABS: Iron 18 ug/dL (37-170)
[2023-11-21 07:29] LABS: Percent Iron Saturation 5 % (20-50)
[2023-11-21 07:43] LABS: Folic Acid 3.8 ng/mL (2.76->20)
[2023-11-21 07:50] LABS: Ferritin 4.72 ng/mL (11.1-264)
[2023-11-21] MEDS: carvediloL 3.125 MG TABLET PO (09:46)
[2023-11-21] MEDS: polyethylene glycoL 3350 17 GM POWD.PACK PO (09:46)
[2023-11-21] MEDS: FLUoxetine HCL 20 MG CAPSULE 40 MG PO (09:46)
[2023-11-21] MEDS: buPROPion HCL SR (12 HR) 150 MG TAB PO ×2 (09:46→20:10)
[2023-11-21] MEDS: SPIRONOLACTONE 25 MG TABLET PO (09:46)
[2023-11-21] MEDS: IRON SUCROSE COMPLEX 500 MG in SODIUM CHLORIDE 0.9% IV 250 ML 78.57 MG IVPB (09:46)
[2023-11-21] MEDS: PANTOPRAZOLE SODIUM IV 40 MG VIAL IV PUSH (09:46)
[2023-11-21] MEDS: valACYclovir HCL 500 MG TABLET PO (09:46)
[2023-11-21] MEDS: POTASSIUM CHLORIDE 20 MEQ ER TABLET 40 MEQ PO (09:46)
--- NOTE | 2023-11-21 14:46 | PM.IMPN ---
Progress Note: A&P Assessment and Plan (1) Symptomatic anemia: Code(s): D64.9 - Anemia, unspecified Status: Acute Assessment and Plan: likely secondary to lack of oral iron supplements and chronic losses due to bleeding hemorrhoids with chronic anticoagulation received 1 unit of packed red blood cells in the ER with improvement in her hemoglobin. continue to trend and monitor Iron panel: iron 18; sat 5%, ferritin 4.72 Venofer and ferrous sulfate (2) Acute gastrointestinal bleeding: Code(s): K92.2 - Gastrointestinal hemorrhage, unspecified Status: Acute Assessment and Plan: hem occult + in ER GI consultation and awaiting recommendations (3) Orthostatic hypotension: Code(s): I95.1 - Orthostatic hypotension Status: Chronic Assessment and Plan: likely exacerbated by her symptomatic anemia fall precautions compression stockings telemetry may be worse due to use of Farxiga with her history of borderline diabetes. check A1c (4) CHF (congestive heart failure): Qualifiers: Heart failure type: unspecified Heart failure chronicity: chronic Qualified Code(s): I50.9 - Heart failure, unspecified Code(s): I50.9 - Heart failure, unspecified Status: Chronic Assessment and Plan: euvolemic. Will hold Lasix given orthostatic hypotension. (5) Chronic constipation: Code(s): K59.09 - Other constipation Status: Chronic Assessment and Plan: Miralax daily Subjective Date/time seen: 11/21/23 14:46 Review of Systems Review of Systems: All systems reviewed & are unremarkable except as noted in HPI and below Exam Narrative: GENERAL: Well-appearing, well-nourished, and in no acute distress. HEAD: Normocephalic, atraumatic. EYES: PERRLA and EOMI. ENT: Nares clear. Mucous membranes moist. NECK: Supple. LUNGS: Clear to auscultation. No respiratory distress. HEART: RRR. Normal peripheral pulses. ABDOMEN: Soft, nontender, nondistended. BS active and present. EXTREMITIES: Normal range of motion. No edema. SKIN: Warm, dry, no rash. NEURO: No focal deficits. Alert and oriented x3. PSYCH: Normal mood and affect. Objective Data Vital Signs Vital Signs: Vital Signs - 24 hr 11/20/23 16:17 11/20/23 18:14 11/20/23 18:36 Temperature 98.5 F 98.5 F Pulse Rate 69 76 73 Respiratory Rate 13 18 18 Blood Pressure 115/49 L 123/58 L 115/54 L Pulse Oximetry 100 98 96 Oxygen Delivery 11/20/23 19:36 11/20/23 20:06 11/20/23 20:04 Temperature 97.6 F 97.6 F 97.6 F Pulse Rate 69 69 71 Respiratory Rate 20 20 20 Blood Pressure 117/48 L 117/48 L 113/48 L Pulse Oximetry 97 97 97 Oxygen Delivery 11/20/23 20:05 11/20/23 20:36 11/20/23 20:00 Temperature 97.6 F 98.2 F Pulse Rate 75 70 Respiratory Rate 20 12 Blood Pressure 101/49 L 118/65 Pulse Oximetry 97 100 Oxygen Delivery Room Air 11/20/23 20:00 11/21/23 00:00 11/21/23 04:00 Temperature Pulse Rate 73 73 71 Respiratory Rate Blood Pressure Pulse Oximetry Oxygen Delivery 11/21/23 05:25 11/21/23 09:43 11/21/23 09:46 Temperature 97.9 F Pulse Rate 72 70 74 Respiratory Rate 20 16 Blood Pressure 131/75 143/58 H Pulse Oximetry 95 97 Oxygen Delivery 11/21/23 08:00 11/21/23 12:00 11/21/23 09:50 Temperature Pulse Rate 67 72 Respiratory Rate Blood Pressure Pulse Oximetry Oxygen Delivery Room Air Intake/Output Intake/Output: Intake & Output 11/18/23 11/19/23 11/20/23 11/21/23 23:59 23:59 23:59 23:59 Intake Total 380 275 Output Total 200 Balance 380 75 Meds/Results Medications: Active Medications Generic Name Dose Route Start Last Admin Trade Name Freq PRN Reason Stop Dose Admin Aspirin 81 mg 11/21/23 09:00 Aspirin 81 Mg Enteric Tablet PO DAILY [facility] Atorvastatin Calcium 80 mg 11/21/23 21:00 Atorvastatin 40 Mg Tablet PO QHS [facility]
[2023-11-21] MEDS: FERROUS SULFATE DRIED 142 MG TABCR PO (18:03)
[2023-11-21] MEDS: POTASSIUM CHLORIDE 20 MEQ ER TABLET PO (18:03)
[2023-11-21] MEDS: ATORVASTATIN 40 MG TABLET 80 MG PO (20:09)
[2023-11-21] MEDS: SOTALOL HCL 40 MG TABLET 120 MG PO (20:09)
[2023-11-21] MEDS: CAPTOPRIL (CAPOTEN) 25 MG TABLET PO (20:10)
[2023-11-21] MEDS: carvediloL 6.25 MG TABLET PO (20:10)
[2023-11-22] VITALS (11 sets, daily range): BP systolic 123–137; BP diastolic 52–80; PULSE 70–96; RESP 14–22; TEMP 36.4–36.7; O2SAT 93–98
[2023-11-22 05:21] LABS: Basophils Absolute Auto 0.1 K/mm3 (0.0-0.1); Basophils Percent Auto 0.8 % (0.2-1.2); Eosinophils Absolute Auto 0.1 K/mm3 (0-0.3); Eosinophils Percent Auto 2.4 % (0-4.4); Hematocrit 30.3 % (37.0-47.0); Hemoglobin 8.1 g/dL (12.0-15.0); Immature Granulocyte Absolute 0.03 K/mm3 (0.00-0.031); Immature Granulocyte Percent A 0.5 % (0-0.5); Lymphocytes Absolute Auto 1.88 K/mm3 (0.9-3.2); Lymphocytes Percent Auto 31.6 % (18.3-44.2); Mean Corpuscular HGB Conc 26.7 g/dl (32-36); Mean Corpuscular Hemoglobin 19.1 pg (26-34); Mean Corpuscular Volume 71.5 fl (80-100); Mean Platelet Volume 8.9 fl (7.4-10.4); Monocytes Absolute Auto 0.5 K/mm3 (0.1-0.6); Monocytes Percent Auto 7.9 % (2.6-8.5); Neutrophils Absolute Auto 3.4 K/mm3 (1.3-6.7); Neutrophils Percent Auto 56.8 % (45.5-73.1); Platelet Count Result 351 k/mm3 (150-375); Red Blood Count 4.24 M/mm3 (4.2-5.4); Red Cell Distribution Width 23.2 % (11.5-14.5)
[2023-11-22 05:28] LABS: Hemoglobin A1C 5.2 % (<5.7)
[2023-11-22 05:37] LABS: Anion Gap 5 mmol/L (8-16); Blood Urea Nitrogen 14 mg/dL (7-17); Calcium 9.2 mg/dL (8.4-10.2); Carbon Dioxide 28 mmol/L (22-30); Chloride 109 mmol/L (98-107); Estimated CRCL calculation 43 ml/min; Estimated Glomerular Filt Rate 54; Glucose 122 mg/dL (65-110); Potassium 4.1 mmol/L (3.4-5.0); Sodium 142 mmol/L (137-145)
[2023-11-22 06:36] LABS: Hypochromasia 3+ (NORMAL); Ovalocytes 2+ (NORMAL); Schistocytes None Seen (NORMAL); Tear Drop Cells 2+ (NORMAL)
[2023-11-22 06:37] LABS: Polychromasia 1+ (NORMAL)
[2023-11-22] MEDS: buPROPion HCL SR (12 HR) 150 MG TAB PO ×2 (08:20→20:58)
[2023-11-22] MEDS: FERROUS SULFATE DRIED 142 MG TABCR PO ×2 (08:20→17:02)
[2023-11-22] MEDS: carvediloL 3.125 MG TABLET PO (08:20)
[2023-11-22] MEDS: SPIRONOLACTONE 25 MG TABLET PO (08:21)
[2023-11-22] MEDS: PANTOPRAZOLE SODIUM IV 40 MG VIAL IV PUSH (08:21)
[2023-11-22] MEDS: polyethylene glycoL 3350 17 GM POWD.PACK PO (08:21)
[2023-11-22] MEDS: POTASSIUM CHLORIDE 20 MEQ ER TABLET 40 MEQ PO (08:21)
[2023-11-22] MEDS: FLUoxetine HCL 20 MG CAPSULE 40 MG PO (08:21)
[2023-11-22] MEDS: valACYclovir HCL 500 MG TABLET PO (08:21)
--- NOTE | 2023-11-22 13:50 | WPDGICN ---
Assessment and Plan Assessment and plan (1) Symptomatic anemia: Code(s): D64.9 - Anemia, unspecified Status: Acute Assessment and Plan: recent colonoscopy unremarkable only hemorrhoids, no need to repeat will proceed with egd, she is on chronic anticoagulation which can explain anemia probably will need to be seen by accredited farm manager (2) Orthostatic hypotension: Code(s): I95.1 - Orthostatic hypotension Status: Chronic Assessment and Plan: better after transfusion (3) Afib: Code(s): I48.91 - Unspecified atrial fibrillation Status: Acute (4) Chronic constipation: Code(s): K59.09 - Other constipation Status: Chronic Assessment and Plan: on hold (5) Occult blood in stools: Code(s): R19.5 - Other fecal abnormalities Status: Acute Assessment and Plan: will assess with egd GI Consult Note Consult date/time: 11/22/23 13:50 Reason for consult: anemia, occult blood stool HPI: Angela Field is a 73 year old female with past medical history of pacemaker, ASD repair, atrial fibrillation with prior ablation on chronic anticoagulation with Eliquis, pre diabetes, irritable bowel syndrome with constipation, hemorrhoids with most recent colonoscopy by Dr Greer exactly 2 months ago, normal colon mucosa only non-bleeing hemorrhoids, had also normal anal skin tag (confirmed by biopsy). She came to the ER due to frequent episodes of lightheadedness for last week.?PCP noted that she had orthostatic hypotension with associated shortness of breath.? She was sent from the office for evaluation and in the ER was found to be anemic with a hemoglobin of 7.1, given blood transfusion, denies melena or overt gib, FOBT +. No recent EGD. Review of Systems Constitutional: Constitutional: Reports fatigue Eyes: Eyes: Denies blurry vision ENT: Reports Normal hearing present Cardiovascular: Cardiovascular: Denies chest pain Respiratory: Respiratory: Denies cough Gastrointestinal: Gastrointestinal: Denies abdominal pain Genitourinary: Genitourinary: Denies dysuria Musculoskeletal: Musculoskeletal: Denies arthralgias and Denies neck pain Integumentary/Breasts: Skin/Breast: Denies dry skin Neurologic: Reports Normal hearing present and Denies weakness Psychiatric: Psychiatric: Denies anxiety Endocrine: Endocrine: Denies change in body appearance Hematologic/Lymphatic: Hematologic/Lymphatic: Denies easy bleeding Allergic/Immunologic: Allergic/Immunologic: Denies urticaria [facility] Past Medical History Medical History (Updated 11/22/23 @ 13:53 by Higinio Sanchez MD) Anxiety Arthritis ASD (atrial septal defect) Borderline diabetic Cataracts, bilateral CHF (congestive heart failure) Chronic constipation Depression Eczema GERD (gastroesophageal reflux disease) Hemorrhoid HTN (hypertension) Hyperlipidemia Mitral valve prolapse Occult blood in stools Pacemaker Due to sick sinus syndrome Peripheral artery disease Mild arterial occlusive disease of left lower limb noted on ABIs January 2023 Post-menopausal Psoriasis (a type of skin inflammation) Rectal polyp Seasonal allergies Skin cancer Surgical History Surgical History H/O congenital atrial septal defect (ASD) repair H/O hemorrhoidectomy History of spinal surgery L4-L5 screws History of tubal ligation Hx of cataract removal with insertion of prosthetic lens Hx of section Hx of tonsillectomy Family History Family History Sibling Hypertension Father Acute myocardial infarction Other Diabetes mellitus Family history of cardiovascular disease Social History Social History (Updated 11/21/23 @ 08:28 by Shagufta Cavanaugh DO) Social History: She lives with her of 42 years. Code status: Full code Surrogate decision maker: S
--- NOTE | 2023-11-22 14:32 | PM.IMPN ---
Progress Note: A&P Assessment and Plan (1) Symptomatic anemia: Code(s): D64.9 - Anemia, unspecified Status: Acute Assessment and Plan: likely secondary to lack of oral iron supplements and chronic losses due to bleeding hemorrhoids with chronic anticoagulation received 1 unit of packed red blood cells in the ER with improvement in her hemoglobin. continue to trend and monitor Iron panel: iron 18; sat 5%, ferritin 4.72 s/p Venofer will continue PO iron TID (2) Acute gastrointestinal bleeding: Code(s): K92.2 - Gastrointestinal hemorrhage, unspecified Status: Acute Assessment and Plan: hem occult + in ER GI consulted - EGD to be done tomorrow (3) Orthostatic hypotension: Code(s): I95.1 - Orthostatic hypotension Status: Chronic Assessment and Plan: likely exacerbated by her symptomatic anemia fall precautions compression stockings telemetry may be worse due to use of Farxiga with her history of borderline diabetes. A1c: 5.2 (4) CHF (congestive heart failure): Qualifiers: Heart failure type: unspecified Heart failure chronicity: chronic Qualified Code(s): I50.9 - Heart failure, unspecified Code(s): I50.9 - Heart failure, unspecified Status: Chronic Assessment and Plan: euvolemic. Will hold Lasix given orthostatic hypotension. (5) Chronic constipation: Code(s): K59.09 - Other constipation Status: Chronic Assessment and Plan: Miralax daily Subjective Date/time seen: 11/22/23 14:32 Interval history: Patient has no complaints this morning, states she is feeling better and was able to ambulate without dizziness or syncope. Denies BM since admission, but no other signs of bleeding. GI to perform EGD tomorrow. Review of Systems Review of Systems: All systems reviewed & are unremarkable except as noted in HPI and below Exam Narrative: GENERAL: Well-appearing, well-nourished, and in no acute distress. HEAD: Normocephalic, atraumatic. EYES: PERRLA and EOMI. ENT: Nares clear. Mucous membranes moist. NECK: Supple. LUNGS: Clear to auscultation. No respiratory distress. HEART: RRR. Normal peripheral pulses. ABDOMEN: Soft, nontender, nondistended. BS active and present. EXTREMITIES: Normal range of motion. No edema. SKIN: Warm, dry, no rash. NEURO: No focal deficits. Alert and oriented x3. PSYCH: Normal mood and affect. Objective Data Vital Signs Vital Signs: Vital Signs - 24 hr 11/21/23 14:52 11/21/23 16:00 11/21/23 19:50 Temperature 98.4 F 97.6 F Pulse Rate 73 78 72 Respiratory Rate 18 16 Blood Pressure 101/79 118/57 L Pulse Oximetry 94 95 Oxygen Delivery 11/21/23 19:44 11/21/23 20:09 11/21/23 20:10 Temperature Pulse Rate 74 74 Respiratory Rate Blood Pressure Pulse Oximetry Oxygen Delivery Room Air 11/21/23 20:00 11/22/23 00:00 11/22/23 04:00 Temperature Pulse Rate 78 80 71 Respiratory Rate Blood Pressure Pulse Oximetry Oxygen Delivery 11/22/23 06:58 11/22/23 08:20 11/22/23 08:00 Temperature 97.5 F L Pulse Rate 71 83 70 Respiratory Rate 14 Blood Pressure 123/52 L Pulse Oximetry 94 Oxygen Delivery 11/22/23 08:00 11/22/23 12:00 11/22/23 13:59 Temperature 97.7 F Pulse Rate 70 96 Respiratory Rate 22 H Blood Pressure 137/63 Pulse Oximetry 93 98 Oxygen Delivery Room Air Intake/Output Intake/Output: Intake & Output 11/19/23 11/20/23 11/21/23 11/22/23 23:59 23:59 23:59 23:59 Intake Total 774 252 0483 Output Total 800 Balance 380 -872 1338 Meds/Results Medications: Active Medications Generic Name Dose Route Start Last Admin Trade Name Mohit PRN Reason Stop Dose Admin Aspirin 81 mg 11/21/23 09:00 Aspirin 81 Mg Enteric Tablet PO DAILY [facility] Atorvastatin Calcium 80 mg 11/21/23 21:00 11/21/23 20:09 Atorvastatin 40 Mg Tablet PO 80 mg
[2023-11-22] MEDS: POTASSIUM CHLORIDE 20 MEQ ER TABLET PO (17:02)
[2023-11-22] MEDS: CAPTOPRIL (CAPOTEN) 25 MG TABLET PO (20:58)
[2023-11-22] MEDS: SOTALOL HCL 40 MG TABLET 120 MG PO (20:58)
[2023-11-22] MEDS: ATORVASTATIN 40 MG TABLET 80 MG PO (20:58)
[2023-11-22] MEDS: carvediloL 6.25 MG TABLET PO (20:58)
[2023-11-23] VITALS (18 sets, daily range): BP systolic 107–146; BP diastolic 51–80; PULSE 63–91; RESP 16–22; TEMP 35.9–36.7; O2SAT 94–99
[2023-11-23 05:02] LABS: Hemoglobin 8.1 g/dL (12.0-15.0); Mean Corpuscular HGB Conc 26.1 g/dl (32-36); Mean Corpuscular Hemoglobin 19.1 pg (26-34); Mean Corpuscular Volume 72.9 fl (80-100); Mean Platelet Volume 9.2 fl (7.4-10.4); Platelet Count Result 350 k/mm3 (150-375); Red Blood Count 4.25 M/mm3 (4.2-5.4); Red Cell Distribution Width 23.9 % (11.5-14.5); White Blood Count 6.6 K/mm3 (4.5-10.0)
[2023-11-23 05:11] LABS: Anion Gap 4 mmol/L (8-16); Blood Urea Nitrogen 13 mg/dL (7-17); Calcium 9.3 mg/dL (8.4-10.2); Carbon Dioxide 29 mmol/L (22-30); Chloride 108 mmol/L (98-107); Estimated CRCL calculation 43 ml/min; Estimated Glomerular Filt Rate 54; Glucose 126 mg/dL (65-110); Potassium 4.9 mmol/L (3.4-5.0); Sodium 141 mmol/L (137-145)
[2023-11-23] MEDS: PANTOPRAZOLE SODIUM IV 40 MG VIAL IV PUSH (08:15)
[2023-11-23] MEDS: valACYclovir HCL 500 MG TABLET PO (08:16)
[2023-11-23] MEDS: carvediloL 3.125 MG TABLET PO (08:16)
--- NOTE | 2023-11-23 11:30 | PC.NURSE ---
To GI Lab via wheelchair.
[2023-11-23] MEDS: LACTATED RINGERS 1,000 ML 150 ML IV CONT (11:40)
--- NOTE | 2023-11-23 12:11 | WPDANESEPPF ---
Anes - Initial Pre Proc Eval Procedure: Operation Date: 11/23/23 13:30 Proposed Procedures p Esophagogastroduodenoscopy - Higinio Sanchez MD Date/Time: 11/23/23 12:11 Surgeon: Gonzalez Madrid MD Pre Op Diagnosis: Symptomatic Anemia/GI Bleed Patient Data Age: 73 Gender: F Height: 1.63 m Weight: 73.6 kg Last Vital Signs Temp 98.0 F 11/23/23 11:30 Pulse 79 11/23/23 11:30 Resp 18 11/23/23 11:30 BP 146/59 H 11/23/23 11:30 Pulse Ox 99 11/23/23 11:30 O2 Del Method Room Air 11/23/23 11:30 Allergies Allergy/AdvReac Type Severity Reaction Status Date / Time adhesive tape Allergy Intermediate Rash Verified 11/23/23 11:38 Home Medications Medication Instructions Recorded Confirmed Type captopril 25 mg tablet 25 mg PO HS 09/02/22 11/23/23 History apixaban 5 mg tablet (Eliquis) 5 mg PO BID 12/31/22 11/23/23 History aspirin 81 mg tablet,delayed 81 mg PO DAILY 12/31/22 11/23/23 History release atomoxetine 60 mg capsule 60 mg PO QAM 12/31/22 11/23/23 History atorvastatin 80 mg tablet 80 mg PO QHS 12/31/22 11/23/23 History fluoxetine 40 mg capsule 40 mg PO QAM 12/31/22 11/23/23 History furosemide 40 mg tablet 40 mg PO BID 12/31/22 11/23/23 History omeprazole 40 mg capsule,delayed 40 mg PO DAILY 12/31/22 11/23/23 History release sotalol 120 mg tablet 120 mg PO HS 12/31/22 11/23/23 History spironolactone 25 mg tablet 25 mg PO QAM 12/31/22 11/23/23 History valacyclovir 500 mg tablet 500 mg PO DAILY 12/31/22 11/23/23 History lancets 30 gauge (OneTouch Delica #100 ea 04/27/23 11/23/23 Rx Plus Lancet) blood sugar diagnostic ([employer] The[employer]Touch #300 strips 04/28/23 11/23/23 Rx Verio test strips) dapagliflozin propanediol 10 mg 10 mg PO QAM #90 tabs 04/29/23 11/23/23 Rx tablet (Farxiga) potassium chloride 20 mEq 20 meq PO QPM 09/17/23 11/23/23 History tablet,extended release(part/cryst) (Klor-Con M) potassium chloride 20 mEq 40 meq PO QAM 09/17/23 11/23/23 History tablet,extended release(part/cryst) (Klor-Con M) bupropion HCl 150 mg tablet,12 hr See Rx Instructions .Route 11/16/23 11/23/23 Rx sustained-release .COMPLEX #180 tabs carvedilol 12.5 mg tablet 6.25 mg PO QHS 11/16/23 11/23/23 History carvedilol 6.25 mg tablet 3.125 mg PO QAM 11/16/23 11/23/23 History Laboratory Tests 11/23/23 04:50 WBC 6.6 K/mm3 (4.5-10.0) RBC 4.25 M/mm3 (4.2-5.4) Hgb 8.1 L g/dL (12.0-15.0) Hct 31.0 L % (37.0-47.0) MCV 72.9 L fl (80-100) MCH 19.1 L pg (26-34) MCHC 26.1 L g/dl (32-36) RDW 23.9 H % (11.5-14.5) Plt Count 350 k/mm3 (150-375) MPV 9.2 fl (7.4-10.4) Sodium 141 mmol/L (137-145) Potassium 4.9 mmol/L (3.4-5.0) Chloride 108 H mmol/L (98-107) Carbon Dioxide 29 mmol/L (22-30) Anion Gap 4 L mmol/L (8-16) BUN 13 mg/dL (7-17) Creatinine 1.00 mg/dL (0.7-1.0) Estim Creat Clear Calc 43 ml/min Estimated GFR 54 L (59 - ) Glucose 126 H mg/dL (65-110) Calcium 9.3 mg/dL (8.4-10.2) Patient hx anesthesia problems: none Family hx anesthesia problems: none Results Review: All pre-operative results and documents have been reviewed as part of the pre-operative evaluation. [facility] Past Medical History Medical History (Updated 11/22/23 @ 13:53 by Higinio Sanchez MD) Anxiety Arthritis ASD (atrial septal defect) Borderline diabetic Cataracts, bilateral CHF (congestive heart failure) Chronic constipation Depression Eczema GERD (gastroesophageal reflux disease) Hemorrhoid HTN (hypertension) Hyperlipidemia Mitral valve prolapse Occult blood in stools Pacemaker Due to sick sinus syndrome Peripheral artery disease Mild arterial occlusive disease of left lower limb noted on ABIs January 2023 Post-menopausal Psoriasis (a type of skin inflammation) Rectal polyp Seasonal allergies Skin cancer Surgical History Surgical History (Reviewed
--- NOTE | 2023-11-23 13:25 | PC.NURSE ---
Returned from GI Lab via stretcher.
[2023-11-23] MEDS: buPROPion HCL SR (12 HR) 150 MG TAB PO ×2 (13:58→20:12)
[2023-11-23] MEDS: FLUoxetine HCL 20 MG CAPSULE 40 MG PO (13:59)
[2023-11-23] MEDS: SPIRONOLACTONE 25 MG TABLET PO (14:00)
--- NOTE | 2023-11-23 14:23 | P.PNIM_ITS ---
Progress Note: A&P Assessment and Plan (1) Symptomatic anemia: Code(s): D64.9 - Anemia, unspecified Status: Acute Assessment and Plan: * likely secondary to lack of oral iron supplements and chronic losses due to bleeding hemorrhoids with chronic anticoagulation * received 1 unit of packed red blood cells in the ER with improvement in her hemoglobin. * continue to trend and monitor * Iron panel: iron 18; sat 5%, ferritin 4.72 * s/p Venofer * will continue PO iron TID (2) Acute gastrointestinal bleeding: Code(s): K92.2 - Gastrointestinal hemorrhage, unspecified Status: Acute Assessment and Plan: * hem occult + in ER * GI consulted - EGD showed no signs of bleeding * resume diet, follow up outpatient * will order stool calprotectin as patient previously diagnosed with IBS and reports occasional mucus with stools (3) Orthostatic hypotension: Code(s): I95.1 - Orthostatic hypotension Status: Chronic Assessment and Plan: * likely exacerbated by her symptomatic anemia * fall precautions * compression stockings * telemetry * may be worse due to use of Farxiga with her history of borderline diabetes. * A1c: 5.2 (4) CHF (congestive heart failure): Qualifiers: Heart failure type: unspecified Heart failure chronicity: chronic Qualified Code(s): I50.9 - Heart failure, unspecified Code(s): I50.9 - Heart failure, unspecified Status: Chronic Assessment and Plan: * euvolemic. * Will hold Lasix given orthostatic hypotension. (5) Chronic constipation: Code(s): K59.09 - Other constipation Status: Chronic Assessment and Plan: * Miralax daily * Mag citrate added today Subjective Date/time seen: 11/23/23 14:23 Interval history: Patient has no complaints this morning, states she is feeling better and was able to ambulate without dizziness or syncope. EGD done today, no signs of bleeding. Resumed regular diet. Can follow up outpatient. Will order stool calprotectin, and plan for d/c tomorrow as long as remains stable. Review of Systems Review of Systems: All systems reviewed & are unremarkable except as noted in HPI and below Exam Narrative: GENERAL: Well-appearing, well-nourished, and in no acute distress. HEAD: Normocephalic, atraumatic. EYES: PERRLA and EOMI. ENT: Nares clear. Mucous membranes moist. NECK: Supple. LUNGS: Clear to auscultation. No respiratory distress. HEART: RRR. Normal peripheral pulses. ABDOMEN: Soft, nontender, nondistended. BS hypoactive. EXTREMITIES: Normal range of motion. No edema. SKIN: Warm, dry, no rash. NEURO: No focal deficits. Alert and oriented x3. PSYCH: Normal mood and affect. Objective Data Vital Signs Vital Signs: Vital Signs - 24 hr 11/22/23 16:00 11/22/23 19:34 11/22/23 20:58 Temperature 98.0 F Pulse Rate 71 96 96 Respiratory Rate 16 Blood Pressure 132/80 Pulse Oximetry 95 Oxygen Delivery 11/22/23 20:58 11/22/23 20:00 11/23/23 00:00 Temperature Pulse Rate 96 76 68 Respiratory Rate Blood Pressure Pulse Oximetry Oxygen Delivery 11/23/23 04:00 11/23/23 06:45 11/23/23 08:16 Temperature 98.0 F Pulse Rate 68 71 67 Respiratory Rate 16
--- NOTE | 2023-11-23 14:23 | PM.IMPN ---
Progress Note: A&P Assessment and Plan (1) Symptomatic anemia: Code(s): D64.9 - Anemia, unspecified Status: Acute Assessment and Plan: likely secondary to lack of oral iron supplements and chronic losses due to bleeding hemorrhoids with chronic anticoagulation received 1 unit of packed red blood cells in the ER with improvement in her hemoglobin. continue to trend and monitor Iron panel: iron 18; sat 5%, ferritin 4.72 s/p Venofer will continue PO iron TID (2) Acute gastrointestinal bleeding: Code(s): K92.2 - Gastrointestinal hemorrhage, unspecified Status: Acute Assessment and Plan: hem occult + in ER GI consulted - EGD showed no signs of bleeding resume diet, follow up outpatient will order stool calprotectin as patient previously diagnosed with IBS and reports occasional mucus with stools (3) Orthostatic hypotension: Code(s): I95.1 - Orthostatic hypotension Status: Chronic Assessment and Plan: likely exacerbated by her symptomatic anemia fall precautions compression stockings telemetry may be worse due to use of Farxiga with her history of borderline diabetes. A1c: 5.2 (4) CHF (congestive heart failure): Qualifiers: Heart failure type: unspecified Heart failure chronicity: chronic Qualified Code(s): I50.9 - Heart failure, unspecified Code(s): I50.9 - Heart failure, unspecified Status: Chronic Assessment and Plan: euvolemic. Will hold Lasix given orthostatic hypotension. (5) Chronic constipation: Code(s): K59.09 - Other constipation Status: Chronic Assessment and Plan: Miralax daily Mag citrate added today Subjective Date/time seen: 11/23/23 14:23 Interval history: Patient has no complaints this morning, states she is feeling better and was able to ambulate without dizziness or syncope. EGD done today, no signs of bleeding. Resumed regular diet. Can follow up outpatient. Will order stool calprotectin, and plan for d/c tomorrow as long as remains stable. Review of Systems Review of Systems: All systems reviewed & are unremarkable except as noted in HPI and below Exam Narrative: GENERAL: Well-appearing, well-nourished, and in no acute distress. HEAD: Normocephalic, atraumatic. EYES: PERRLA and EOMI. ENT: Nares clear. Mucous membranes moist. NECK: Supple. LUNGS: Clear to auscultation. No respiratory distress. HEART: RRR. Normal peripheral pulses. ABDOMEN: Soft, nontender, nondistended. BS hypoactive. EXTREMITIES: Normal range of motion. No edema. SKIN: Warm, dry, no rash. NEURO: No focal deficits. Alert and oriented x3. PSYCH: Normal mood and affect. Objective Data Vital Signs Vital Signs: Vital Signs - 24 hr 11/22/23 16:00 11/22/23 19:34 11/22/23 20:58 Temperature 98.0 F Pulse Rate 71 96 96 Respiratory Rate 16 Blood Pressure 132/80 Pulse Oximetry 95 Oxygen Delivery 11/22/23 20:58 11/22/23 20:00 11/23/23 00:00 Temperature Pulse Rate 96 76 68 Respiratory Rate Blood Pressure Pulse Oximetry Oxygen Delivery 11/23/23 04:00 11/23/23 06:45 11/23/23 08:16 Temperature 98.0 F Pulse Rate 68 71 67 Respiratory Rate 16 Blood Pressure 113/60 Pulse Oximetry 95 Oxygen Delivery 11/23/23 08:28 11/23/23 08:03 11/23/23 11:30 Temperature 98.0 F Pulse Rate 67 70 79 Respiratory Rate 16 18 Blood Pressure 146/59 H Pulse Oximetry 95 99 Oxygen Delivery Room Air Room Air 11/23/23 11:30 11/23/23 13:00 11/23/23 13:10 Temperature Pulse Rate 73 70 70 Respiratory Rate 21 H 22 H Blood Pressure 114/52 L 107/51 L Pulse Oximetry 99 99 Oxygen Delivery Room Air Room Air 11/23/23 13:20 11/23/23 13:23 11/23/23 13:25 Temperature Pulse Rate 68 67 Respiratory Rate 18 18 18 Blood Pressure 116/52 L 121/56 L Pulse Oximetry 99 94 94 Oxygen Delivery Room Air Room Air Room Air 11/23/23 13:3
[2023-11-23] MEDS: FERROUS SULFATE DRIED 142 MG TABCR PO (16:54)
[2023-11-23] MEDS: MAGNESIUM CITRATE 300 ML BTL PO (17:04)
[2023-11-23] MEDS: carvediloL 6.25 MG TABLET PO (20:12)
[2023-11-23] MEDS: ATORVASTATIN 40 MG TABLET 80 MG PO (20:12)
[2023-11-23] MEDS: CAPTOPRIL (CAPOTEN) 25 MG TABLET PO (20:12)
[2023-11-23] MEDS: SOTALOL HCL 40 MG TABLET 120 MG PO (20:12)
[2023-11-24] VITALS: PULSE 96
[2023-11-24 04:00] VITALS: PULSE 67
[2023-11-24 05:51] VITALS: BP 120/74; PULSE 73; RESP 20; TEMP 37.3; O2SAT 97
[2023-11-24 05:51] LABS: Hematocrit 31.8 % (37.0-47.0); Hemoglobin 8.3 g/dL (12.0-15.0); Mean Corpuscular HGB Conc 26.1 g/dl (32-36); Mean Corpuscular Hemoglobin 19.3 pg (26-34); Mean Corpuscular Volume 73.8 fl (80-100); Mean Platelet Volume 9.3 fl (7.4-10.4); Platelet Count Result 369 k/mm3 (150-375); Red Blood Count 4.31 M/mm3 (4.2-5.4); White Blood Count 8.3 K/mm3 (4.5-10.0)
[2023-11-24 06:00] LABS: Anion Gap 5 mmol/L (8-16); Blood Urea Nitrogen 12 mg/dL (7-17); CRP < 0.5 mg/dL (<1.0); Calcium 9.1 mg/dL (8.4-10.2); Carbon Dioxide 29 mmol/L (22-30); Chloride 106 mmol/L (98-107); Estimated CRCL calculation 43 ml/min; Estimated Glomerular Filt Rate 54; Glucose 95 mg/dL (65-110); Potassium 4.4 mmol/L (3.4-5.0); Sodium 140 mmol/L (137-145)
[2023-11-24 07:33] VITALS: BP 125/51; PULSE 72; TEMP 36.9; O2SAT 96
--- NOTE | 2023-11-24 08:48 | WPDANESPN ---
Anes - Prog Note Post-Op Date/Time: 11/24/23 08:48 Cardiovascular status: normal Respiratory status: normal Airway patency: baseline Mental status: baseline Post-Op hydration status: normal Vital Signs: Last Vital Signs Temp 36.9 C 11/24/23 07:33 Pulse 72 11/24/23 07:33 Resp 20 11/24/23 05:51 BP 125/51 L 11/24/23 07:33 Pulse Ox 96 11/24/23 07:33 O2 Del Method Room Air 11/23/23 13:25 Pain Score (VAS): 310 I/O: Intake & Output 11/23/23 11/24/23 11/24/23 23:59 07:59 15:59 Intake Total 660 500 Output Total 900 Balance -240 500 Laboratory Tests 11/24/23 05:32 11/24/23 05:32 11/23/23 11/24/23 23:09 05:32 WBC 8.3 RBC 4.31 Hgb 8.3 L Hct 31.8 L MCV 73.8 L MCH 19.3 L MCHC 26.1 L RDW 25.0 H Plt Count 369 MPV 9.3 Sodium 140 Potassium 4.4 Chloride 106 Carbon Dioxide 29 Anion Gap 5 L BUN 12 Creatinine 1.00 Estim Creat Clear Calc 43 Estimated GFR 54 L Glucose 95 Calcium 9.1 C-Reactive Protein < 0.5 Stool Calprotectin Pending Post-procedural complaints: none Patient Feedback: Patient satisfied with anesthetic care.
[2023-11-24] MEDS: FERROUS SULFATE DRIED 142 MG TABCR PO (09:06)
[2023-11-24] MEDS: ASPIRIN 81 MG ENTERIC TABLET PO (09:07)
[2023-11-24] MEDS: buPROPion HCL SR (12 HR) 150 MG TAB PO (09:08)
[2023-11-24 09:09] VITALS: PULSE 72
[2023-11-24] MEDS: carvediloL 3.125 MG TABLET PO (09:09)
[2023-11-24] MEDS: FLUoxetine HCL 20 MG CAPSULE 40 MG PO (09:11)
[2023-11-24] MEDS: PANTOPRAZOLE SODIUM IV 40 MG VIAL IV PUSH (09:12)
[2023-11-24] MEDS: POTASSIUM CHLORIDE 20 MEQ ER TABLET 40 MEQ PO (09:13)
[2023-11-24] MEDS: SPIRONOLACTONE 25 MG TABLET PO (09:14)
[2023-11-24] MEDS: valACYclovir HCL 500 MG TABLET PO (09:15)
[2023-11-24 11:50] VITALS: BP 134/52; PULSE 71; TEMP 36.6; O2SAT 98
[2023-11-24] MEDS: DICLOFENAC SODIUM 1% 100 GM GEL (*BKC) 1 APPLIC TOPICAL (12:27)
--- NOTE | 2023-11-24 12:50 | PM.DS ---
DS: Admitting Diagnosis Discharge Date 11/24/23 Admitting Diagnosis lightheadedness DS: Discharge Diagnosis Discharge Diagnosis (1) Symptomatic anemia: Code(s): D64.9 - Anemia, unspecified Status: Acute Assessment and Plan: likely secondary to lack of oral iron supplements and chronic losses due to bleeding hemorrhoids with chronic anticoagulation Iron panel: iron 18; sat 5%, ferritin 4.72 s/p Venofer will continue PO iron BIDWM EGD negative for source of bleeding (2) Acute gastrointestinal bleeding: Code(s): K92.2 - Gastrointestinal hemorrhage, unspecified Status: Acute Assessment and Plan: hem occult + in ER GI consulted - EGD showed no signs of bleeding resume diet, follow up outpatient pending stool calprotectin as patient previously diagnosed with IBS and reports occasional mucus with stools (3) Orthostatic hypotension: Code(s): I95.1 - Orthostatic hypotension Status: Chronic Assessment and Plan: likely exacerbated by her symptomatic anemia compression stockings may be worse due to use of Farxiga with her history of borderline diabetes. A1c: 5.2 (4) CHF (congestive heart failure): Qualifiers: Heart failure type: unspecified Heart failure chronicity: chronic Qualified Code(s): I50.9 - Heart failure, unspecified Code(s): I50.9 - Heart failure, unspecified Status: Chronic Assessment and Plan: euvolemic. (5) Chronic constipation: Code(s): K59.09 - Other constipation Status: Chronic Assessment and Plan: stool softener daily Miralax daily large BM last night DS: Summary Hospital Course Hospital Course: Patient is a very pleasant 73 YO female with PMH of pacemaker, ASD repair, atrial fibrillation with prior ablation on chronic anticoagulation with Eliquis, pre diabetes, irritable bowel syndrome with constipation, hemorrhoids, and colon polyps admitted due to frequent episodes of lightheadedness for 1 week. Patient was evaluated at physician's office and found to have positive orthostatic hypotension with associated shortness of breath. She was sent from the office for evaluation and in the ER was found to be anemic with a hemoglobin of 7.1 but no prior lab comparisons available in our system since 2019 at which time hemoglobin was 14. She does report irritable bowel syndrome with constipation. She had a colonoscopy in September which demonstrated internal hemorrhoids and at which time she had removal of anal skin tag. She reports that she had some polyps removed. She has noticed blood-streaked stool usually after she has had hard bowel movements with her constipation. In the ER her stool was grossly normal in appearance but Hemoccult was positive. She reports that for the last several years she has had episodes of orthostatic hypotension. She at times will have episodes of confusion with her symptoms had improved after she sits or lays down. She reports that over the last 2-3 months she has had progressive dyspnea on exertion. She denies any chest pain. She has a both have repeat echocardiogram as outpatient with her personal service workers at the end of the month. She sees personal service workers at [place]. She has a pacemaker in place. She had outpatient event monitor a couple of months ago. She denies any lower extremity swelling. She denies any hematuria or vaginal bleeding. GI consulted and performed EGD which showed no signs of active bleeding or ulcerations. Started on PO iron BIDWM as her iron panel showed iron deficiency. She has not had any syncopal episodes while inpatient. She received 1 unit of PRBC in the ER and her H&H has remained stable above 8 since. She received 1 bag of Venofer. Resumed regular diet. Can follow up outpatient. Ordered stool calprotectin which is still pending. Will d/c home today and follow up with her primary care regarding her borderline hypoglycemia on . Status at Discharge F
[2023-11-29 20:37] LABS: Calprotectin, Stool 180 mcg/g
== END 2023-11-24 13:20 | disposition home or self-care (01) | DRG 812 ==
LOC: ANHED 17:04 → ANH3MEDSUR 17:48 → ANH2MED 19:05
PROVIDERS: Emergency Medicine; Internal Medicine; Internal Medicine Gastroenterology; Student in an Organized Health Care Education/Training Program; Admitting Provider Internal Medicine; Emergency Provider Student in an Organized Health Care Education/Training Program; PCP Emergency Medicine; Visit Provider Nurse Practitioner
PROC: 0DJ08ZZ Inspection of Upper Intestinal Tract, Via Natural or Artificial Opening Endoscopic (ICD-10-PCS; CPT 43235; principal; 2023-11-23 13:30)
DX: D50.9 Iron deficiency anemia, unspecified (principal); K92.2 Gastrointestinal hemorrhage, unspecified; E78.5 Hyperlipidemia, unspecified; I95.1 Orthostatic hypotension; I49.5 Sick sinus syndrome; I11.0 Hypertensive heart disease with heart failure; I50.9 Heart failure, unspecified; I48.91 Unspecified atrial fibrillation; I73.9 Peripheral vascular disease, unspecified; K64.9 Unspecified hemorrhoids; K58.1 Irritable bowel syndrome with constipation; R19.5 Other fecal abnormalities; R73.03 Prediabetes; Z95.0 Presence of cardiac pacemaker; Z79.01 Long term (current) use of anticoagulants; Z79.82 Long term (current) use of aspirin; Z86.010 Personal history of colon polyps; Z98.41 Cataract extraction status, right eye; Z98.42 Cataract extraction status, left eye; Z96.1 Presence of intraocular lens; Z85.828 Personal history of other malignant neoplasm of skin
CPT/HCPCS: 36415; 36430; 71046; 80048; 80053; 82607; 82728; 82746; 83036; 83540; 83550; 83993; 84484; 85014; 85018; 85025; 85027; 86140; 86850; 86900; 86901; 86923; 88305; 93005; 93971; 96374; 99285; A9270; C9113; J1756; J2704; J7050; J7120; P9016

== ENCOUNTER 2023-11-26 21:13 | Emergency (ER) | payer OTHER, SELFPAY ==
--- NOTE | ~2023-11-26 | US_ITS ---
EXAMINATION: US venous doppler UE RT DATE: 11/26/2023 22:11 INDICATION: Right upper limb pain. TECHNIQUE: Grayscale ultrasound images without and with compression and Doppler ultrasound images of the right upper extremity veins were obtained. COMPARISON: Ultrasound 11/24/2023 FINDINGS: The visualized portions of the right internal jugular vein, subclavian vein, axillary vein, brachial veins, basilic vein, and ulnar vein are patent. There is thrombus in the right cephalic and radial ve ins. IMPRESSION: 1. Deep vein thrombosis involving the right radial vein. 2. Superficial vein thrombosis involving the right cephalic vein. Reviewed, dictated and finalized at location E. ING OPERATOR
[2023-11-26 21:28] VITALS: BP 119/93; PULSE 71; RESP 20; TEMP 36.9; O2SAT 99
[2023-11-27 00:19] LABS: Basophils Percent Auto 0.5 % (0.2-1.2); Eosinophils Absolute Auto 0.1 K/mm3 (0-0.3); Eosinophils Percent Auto 1.6 % (0-4.4); Hematocrit 33.8 % (37.0-47.0); Immature Granulocyte Absolute 0.02 K/mm3 (0.00-0.031); Immature Granulocyte Percent A 0.3 % (0-0.5); Lymphocytes Absolute Auto 1.81 K/mm3 (0.9-3.2); Lymphocytes Percent Auto 23.9 % (18.3-44.2); Mean Corpuscular HGB Conc 26.6 g/dl (32-36); Mean Corpuscular Hemoglobin 20.2 pg (26-34); Mean Platelet Volume 9.6 fl (7.4-10.4); Monocytes Absolute Auto 0.5 K/mm3 (0.1-0.6); Monocytes Percent Auto 6.3 % (2.6-8.5); Neutrophils Absolute Auto 5.1 K/mm3 (1.3-6.7); Neutrophils Percent Auto 67.4 % (45.5-73.1); Platelet Count Result 360 k/mm3 (150-375); Red Blood Count 4.45 M/mm3 (4.2-5.4); White Blood Count 7.6 K/mm3 (4.5-10.0)
[2023-11-27 00:29] LABS: Alanine Aminotransferase 14 U/L (6-35); Albumin Level 3.5 g/dL (3.5-5.1); Alkaline Phosphatase 87 U/L (38-126); Anion Gap 8 mmol/L (8-16); Aspartate Amino Transferase 28 U/L (14-36); Bilirubin,Total 0.5 mg/dL (0.2-1.3); Blood Urea Nitrogen 24 mg/dL (7-17); Calcium 9.1 mg/dL (8.4-10.2); Carbon Dioxide 26 mmol/L (22-30); Chloride 103 mmol/L (98-107); Estimated CRCL calculation 39 ml/min; Estimated Glomerular Filt Rate 49; Glucose 96 mg/dL (65-110); Potassium 4.2 mmol/L (3.4-5.0); Sodium 137 mmol/L (137-145)
[2023-11-27 00:32] LABS: INR 1.2; Prothrombin Time 15.5 Seconds (11.1-14.7)
[2023-11-27 01:06] LABS: Platelet Estimate Adequate (Adequate)
[2023-11-27 01:07] LABS: Hypochromasia 1+ (NORMAL); Large Platelets Present; Poikilocytosis 1+ (NORMAL)
[2023-11-27 01:08] LABS: Anisocytosis 1+ (NORMAL); Crenated RBC 1+ (NORMAL); Ovalocytes 1+ (NORMAL); Schistocytes None Seen (NORMAL)
--- NOTE | 2023-11-27 01:18 | ED.GENADULT ---
HPI - General Adult General Chief complaint: Extremity Injury, Upper Stated complaint: blood clot in right arm, pain Time Seen by Provider: 11/26/23 23:30 History of Present Illness HPI narrative: Patient is a 73-year-old female who presents emergency department with chief complaint of pain and swelling in the right upper extremity. The patient reports she had superficial thrombophlebitis reports that she was admitted to the hospital and had to hold her Eliquis due to procedures the patient states she started back her Eliquis on Thursday night and has had several doses of her Eliquis since then patient reports no chest pain denies shortness of breath patient reports that after she had the ultrasound diagnosing with superficial flung thrombophlebitis that the redness has worsened in her forearm and she is concerned of propagation of the clot. Related Data Home Medications Medication Instructions Recorded Confirmed captopril 25 mg tablet 25 mg PO HS 09/02/22 11/23/23 apixaban 5 mg tablet (Eliquis) 5 mg PO BID 12/31/22 11/23/23 aspirin 81 mg tablet,delayed 81 mg PO DAILY 12/31/22 11/23/23 release atomoxetine 60 mg capsule 60 mg PO QAM 12/31/22 11/23/23 atorvastatin 80 mg tablet 80 mg PO QHS 12/31/22 11/23/23 fluoxetine 40 mg capsule 40 mg PO QAM 12/31/22 11/23/23 furosemide 40 mg tablet 40 mg PO BID 12/31/22 11/23/23 omeprazole 40 mg capsule,delayed 40 mg PO DAILY 12/31/22 11/23/23 release sotalol 120 mg tablet 120 mg PO HS 12/31/22 11/23/23 spironolactone 25 mg tablet 25 mg PO QAM 12/31/22 11/23/23 valacyclovir 500 mg tablet 500 mg PO DAILY 12/31/22 11/23/23 potassium chloride 20 mEq 20 meq PO QPM 09/17/23 11/23/23 tablet,extended release(part/cryst) (Klor-Con M) potassium chloride 20 mEq 40 meq PO QAM 09/17/23 11/23/23 tablet,extended release(part/cryst) (Klor-Con M) carvedilol 12.5 mg tablet 6.25 mg PO QHS 11/16/23 11/23/23 carvedilol 6.25 mg tablet 3.125 mg PO QAM 11/16/23 11/23/23 Allergies Allergy/AdvReac Type Severity Reaction Status Date / Time adhesive tape Allergy Intermediate Rash Verified 11/26/23 23:56 Review of Systems Review of Systems: A 10 system review of systems was completed on the patient and is negative except for what is stated in the HPI. Nursing and ancillary documentation was reviewed. [facility] Past Medical History Medical History Anxiety Arthritis ASD (atrial septal defect) Borderline diabetic Cataracts, bilateral CHF (congestive heart failure) Chronic constipation Depression Eczema GERD (gastroesophageal reflux disease) Hemorrhoid HTN (hypertension) Hyperlipidemia Mitral valve prolapse Occult blood in stools Pacemaker Due to sick sinus syndrome Peripheral artery disease Mild arterial occlusive disease of left lower limb noted on ABIs January 2023 Post-menopausal Psoriasis (a type of skin inflammation) Rectal polyp Seasonal allergies Skin cancer Surgical History Surgical History H/O congenital atrial septal defect (ASD) repair H/O hemorrhoidectomy History of spinal surgery L4-L5 screws History of tubal ligation Hx of cataract removal with insertion of prosthetic lens Hx of section Hx of tonsillectomy Family History Family History Sibling Hypertension Father Acute myocardial infarction Other Diabetes mellitus Family history of cardiovascular disease Social History Social History Social History: She lives with her of 42 years. Code status: Full code Surrogate decision maker: Smoking status: Never smoker Alcohol intake: never Substance use: never Substance use type: does not use Do You Feel Safe in your Home?: Yes Lack of Transportation: No Lack of Food: N
[2023-11-27] MEDS: HYDROcodone/acetaminophen (*CRX) 5-325 MG TABLET 1 TAB PO (01:39)
[2023-11-27 01:43] VITALS: BP 120/63; PULSE 71; RESP 20; O2SAT 96
== END 2023-11-27 01:47 | disposition home or self-care (01) ==
PROVIDERS: Emergency Provider Emergency Medicine; PCP Emergency Medicine
DX: I82.621 Acute embolism and thrombosis of deep veins of right upper extremity (principal); I82.611 Acute embolism and thrombosis of superficial veins of right upper extremity; I50.9 Heart failure, unspecified; I11.0 Hypertensive heart disease with heart failure; I34.1 Nonrheumatic mitral (valve) prolapse; I73.9 Peripheral vascular disease, unspecified; R73.03 Prediabetes; E78.5 Hyperlipidemia, unspecified; K21.9 Gastro-esophageal reflux disease without esophagitis; L40.9 Psoriasis, unspecified; M19.90 Unspecified osteoarthritis, unspecified site; F32.A Depression, unspecified; F41.9 Anxiety disorder, unspecified; Z85.828 Personal history of other malignant neoplasm of skin; Z87.19 Personal history of other diseases of the digestive system; Z87.74 Personal history of (corrected) congenital malformations of heart and circulatory system; Z96.1 Presence of intraocular lens; Z98.49 Cataract extraction status, unspecified eye; Z79.82 Long term (current) use of aspirin; Z79.01 Long term (current) use of anticoagulants
CPT/HCPCS: 36415; 80053; 85025; 85610; 85730; 93971; 99284; A9270

== ENCOUNTER 2023-12-10 06:00 | Outpatient (CLI) | payer OTHER, SELFPAY ==
--- NOTE | 2023-12-09 09:28 | PC.NURSE ---
Patient called regarding upcoming procedure. Reviewed preop instructions, appointment times, and procedure prep. Pt states last dose of IRON was 12/04/2023.
--- NOTE | 2023-12-10 07:09 | SUR.OPER ---
Patient brought to GI Lab. Instructions for patient undergoing Capsule Endoscopy reviewed with patient. Consent form signed. Patient voiced understanding and agreement to proceed with procedure regarding pacemaker implant. Sensor array applied to patient's abdomen and connected to recorded. Patient swallowed capsule with 2 cups of water infused with Simethicone. Patient instructed they may have clear liquids at 0830 this AM and eat or drink at 1030 this AM. Patient instructed to return to GI Lab at 1500 this afternoon for removal of recording device and to call [phone] or to return to the hospital if any nausea and vomiting or abdominal pain is experienced.
--- NOTE | 2023-12-15 12:08 | SUR.PREOP ---
Called pt at 1115 today regarding her follow up KUB that was ordered because Given's capsule being retained in the stomach during the capsule study. Patient said she passed the capsule last night. I updated Dr. Gentile and he said she didn't not need to come in for the KUB xray since she visually saw the capsule pass. Patient asked about resuming her iron. We discussed signs and symptoms of low blood count like dizziness, SOB, weakness. Spoke with Rocio in the GI office to enquire the status of her getting approved. Rocio looked at her messages and said she had been approved. Patient called at 1215 and scheduled for tomorrow at 8 am. Instructed patient not to take her iron and discussed pre-op instructions.
== END 2023-12-10 06:01 | disposition home or self-care (01) ==
LOC: ANHENDO 06:01
PROVIDERS: PCP Emergency Medicine; Visit Provider Internal Medicine Gastroenterology
PROC: 0DJ07ZZ Inspection of Upper Intestinal Tract, Via Natural or Artificial Opening (ICD-10-PCS; CPT 91110; principal; 2023-12-10 07:00)
DX: Z01.818 Encounter for other preprocedural examination (principal)
CPT/HCPCS: 91110

== ENCOUNTER 2023-12-29 03:55 | Day surgery (SDC) | payer OTHER, SELFPAY ==
[2023-12-15 14:39] VITALS: BMI 27.6
--- NOTE | 2023-12-17 11:57 | PC.NURSE ---
Message sent via dept. sql manager regarding capsule and pacemaker for Dr. Gentile to discuss with patient per capsule guidelines.
--- NOTE | 2023-12-25 13:55 | SUR.PREOP ---
Patient called regarding upcoming procedure. Reviewed preop instructions, appointment times, and procedure prep. pt denies additional questions.
[2023-12-29 06:40] VITALS: BP 143/100; PULSE 73; RESP 18; TEMP 36.4; O2SAT 98; BMI 28.6
--- NOTE | 2023-12-29 07:00 | WPDANESEPPF ---
Anes - Initial Pre Proc Eval Procedure: Operation Date: 12/29/23 07:00 Proposed Procedures p Esophagogastroduodenoscopy With Deployment Of Capsule - Higinio Sanchez MD Date/Time: 12/29/23 07:00 Surgeon: Higinio Sanchez MD Pre Op Diagnosis: Other fecal abnormalities,Anemia Patient Data Age: 73 Gender: F Height: 1.63 m Weight: 75.7 kg Last Vital Signs Temp 36.4 C 12/29/23 06:40 Pulse 73 12/29/23 06:40 Resp 18 12/29/23 06:40 BP 143/100 H 12/29/23 06:40 Pulse Ox 98 12/29/23 06:40 O2 Del Method Room Air 12/29/23 06:40 Allergies Allergy/AdvReac Type Severity Reaction Status Date / Time adhesive tape Allergy Intermediate Rash Verified 12/29/23 06:48 Home Medications Medication Instructions Recorded Confirmed Type captopril 25 mg tablet 25 mg PO HS 09/02/22 12/29/23 History apixaban 5 mg tablet (Eliquis) 5 mg PO BID 12/31/22 12/29/23 History aspirin 81 mg tablet,delayed 81 mg PO DAILY 12/31/22 12/29/23 History release atomoxetine 60 mg capsule 60 mg PO QAM 12/31/22 12/29/23 History atorvastatin 80 mg tablet 80 mg PO QHS 12/31/22 12/29/23 History fluoxetine 40 mg capsule 40 mg PO QAM 12/31/22 12/29/23 History furosemide 40 mg tablet 40 mg PO BID 12/31/22 12/29/23 History omeprazole 40 mg capsule,delayed 40 mg PO DAILY 12/31/22 12/29/23 History release sotalol 120 mg tablet 120 mg PO HS 12/31/22 12/29/23 History spironolactone 25 mg tablet 25 mg PO QAM 12/31/22 12/29/23 History valacyclovir 500 mg tablet 500 mg PO DAILY 12/31/22 12/29/23 History lancets 30 gauge (BitbrainsTouch Delica #100 ea 04/27/23 12/29/23 Rx Plus Lancet) blood sugar diagnostic (BitbrainsTouch #300 strips 04/28/23 12/29/23 Rx Verio test strips) dapagliflozin propanediol 10 mg 10 mg PO QAM #90 tabs 04/29/23 12/29/23 Rx tablet (Farxiga) potassium chloride 20 mEq 20 meq PO QPM 09/17/23 12/29/23 History tablet,extended release(part/cryst) (Klor-Con M) potassium chloride 20 mEq 40 meq PO QAM 09/17/23 12/29/23 History tablet,extended release(part/cryst) (Klor-Con M) bupropion HCl 150 mg tablet,12 hr See Rx Instructions .Route 11/16/23 12/29/23 Rx sustained-release .COMPLEX #180 tabs carvedilol 12.5 mg tablet 6.25 mg PO QHS 11/16/23 12/29/23 History carvedilol 6.25 mg tablet 3.125 mg PO QAM 11/16/23 12/29/23 History ferrous sulfate 142 mg (45 mg 142 mg PO BIDWM #60 tabs 11/24/23 12/29/23 Rx iron) tablet,extended release (Slow Release Iron) hydrocodone 5 mg-acetaminophen 325 1 tablet PO Q6H PRN pain #12 tabs 11/27/23 12/29/23 Rx mg tablet hydrocodone 5 mg-acetaminophen 325 1 tablet PO Q6H PRN pain 3 days 11/27/23 12/29/23 Rx mg tablet #12 tabs Patient hx anesthesia problems: none Family hx anesthesia problems: none Results Review: All pre-operative results and documents have been reviewed as part of the pre-operative evaluation. ON LICENSE OF [facility] Past Medical History Medical History Anxiety Arthritis ASD (atrial septal defect) Borderline diabetic Cataracts, bilateral CHF (congestive heart failure) Chronic constipation Depression Eczema GERD (gastroesophageal reflux disease) Hemorrhoid HTN (hypertension) Hyperlipidemia Mitral valve prolapse Occult blood in stools Pacemaker Due to sick sinus syndrome Peripheral artery disease Mild arterial occlusive disease of left lower limb noted on ABIs January 2023 Post-menopausal Psoriasis (a type of skin inflammation) Rectal polyp Seasonal allergies Skin cancer Surgical History Surgical History H/O congenital atrial septal defect (ASD) repair H/O hemorrhoidectomy History of spinal surgery L4-L5 screws History of tubal ligation Hx of cataract removal with insertion of prosthetic lens Hx of section Hx of tonsillectomy Family History Family History
[2023-12-29] MEDS: LACTATED RINGERS 1,000 ML 150 ML IV CONT (07:02)
--- NOTE | 2023-12-29 07:24 | PM.HPGS ---
History of Present Illness History of Present Illness Consent: Risks, benefits, and alternatives have been discussed and questions answered. Patient agrees to proceed with procedure. Chief complaint: Other fecal abnormalities,Anemia Narrative: Angela Field is a 73 year old female here for egd and capsule endoscopy deployment with past medical history of pacemaker, ASD repair, atrial fibrillation with prior ablation on chronic anticoagulation with Eliquis, had normal colonoscopy and egd recently, recent capsule endoscopy stayed mostly in stomach. She still needs to be on eliquis because dvt. Review of Systems Constitutional: Constitutional: Denies headache(s) and Denies weakness Eyes: Eyes: Denies blurry vision ENT: Reports Normal hearing present, Denies headache(s) and Denies neck pain Cardiovascular: Cardiovascular: Denies chest pain and Denies dyspnea Respiratory: Respiratory: Denies dyspnea Gastrointestinal: Gastrointestinal: Reports no additional gastrointestinal complaints Genitourinary: Genitourinary: Denies dysuria Musculoskeletal: Musculoskeletal: Denies neck pain Integumentary/Breasts: Skin/Breast: Denies dry skin Neurologic: Reports Normal hearing present, Denies headache(s) and Denies weakness Psychiatric: Psychiatric: Denies anxiety Endocrine: Endocrine: Denies change in body appearance Hematologic/Lymphatic: Hematologic/Lymphatic: Denies easy bleeding Allergic/Immunologic: Allergic/Immunologic: Denies urticaria PMFSH Past Medical History Medical History Anxiety Arthritis ASD (atrial septal defect) Borderline diabetic Cataracts, bilateral CHF (congestive heart failure) Chronic constipation Depression Eczema GERD (gastroesophageal reflux disease) Hemorrhoid HTN (hypertension) Hyperlipidemia Mitral valve prolapse Occult blood in stools Pacemaker Due to sick sinus syndrome Peripheral artery disease Mild arterial occlusive disease of left lower limb noted on ABIs January 2023 Post-menopausal Psoriasis (a type of skin inflammation) Rectal polyp Seasonal allergies Skin cancer Surgical History Surgical History H/O congenital atrial septal defect (ASD) repair H/O hemorrhoidectomy History of spinal surgery L4-L5 screws History of tubal ligation Hx of cataract removal with insertion of prosthetic lens Hx of section Hx of tonsillectomy Family History Family History Sibling Hypertension Father Acute myocardial infarction Other Diabetes mellitus Family history of cardiovascular disease Social History Social History Social History: She lives with her of 42 years. Code status: Full code Surrogate decision maker: Smoking status: Never smoker Alcohol intake: never Substance use: never Substance use type: does not use Do You Feel Safe in your Home?: Yes Lack of Transportation: No Lack of Food: Never True Current Housing: I Have Housing Concerned About Future Housing: No Difficulty Paying Gas/Electric Bills: No Difficulty Paying for Meds: No Currently Unemployed: No Education: Decline to Answer Difficulty w/ Childcare or Family Care: No Living arrangements: with family Gender identity (if verbalized by the patient): Female Sexual Orientation (if Verbalized by the Patient): Straight or Heterosexual Spiritual care concerns: No Meds Home Medications and Allergies Home Medications Medication Instructions Recorded Confirmed Type captopril 25 mg tablet 25 mg PO HS 09/02/22 12/29/23 History apixaban 5 mg tablet (Eliquis) 5 mg PO BID 12/31/22 12/29/23 History aspirin 81 mg tablet,delayed 81 mg PO DAILY 12/31/22 12/29/23 History release atomoxetine 60 mg capsule 60 mg PO QAM 12/31/22
--- NOTE | 2023-12-29 07:40 | SUR.OPER ---
Patient brought to GI Lab. Instructions for patient undergoing Capsule Endoscopy reviewed with patient. Consent form signed. Sensor array applied to patient's abdomen and connected to recorded. Capsule deployed during procedure. Patient instructed they may have clear liquids at 0930 this AM and eat or drink at 1130 this AM. Patient instructed to return to GI Lab at 1500 this afternoon for removal of recording device and to call [phone] or to return to the hospital if any nausea and vomiting or abdominal pain is experienced.
[2023-12-29 07:47] VITALS: BP 108/56; PULSE 75; RESP 19; O2SAT 92
[2023-12-29 07:57] VITALS: BP 122/65; PULSE 70; RESP 21; O2SAT 96
[2023-12-29 08:07] VITALS: BP 138/76; PULSE 68; RESP 22; O2SAT 95
== END 2023-12-29 08:15 | disposition home or self-care (01) ==
PROVIDERS: PCP Emergency Medicine; Visit Provider Internal Medicine Gastroenterology
PROC: 0DJ08ZZ Inspection of Upper Intestinal Tract, Via Natural or Artificial Opening Endoscopic (ICD-10-PCS; CPT 43235; principal; 2023-12-29 07:00)
DX: D50.9 Iron deficiency anemia, unspecified (principal); I11.0 Hypertensive heart disease with heart failure; I50.9 Heart failure, unspecified; I73.9 Peripheral vascular disease, unspecified; E78.5 Hyperlipidemia, unspecified; K21.9 Gastro-esophageal reflux disease without esophagitis; F41.9 Anxiety disorder, unspecified; R73.03 Prediabetes; L40.9 Psoriasis, unspecified; Z95.0 Presence of cardiac pacemaker; Z79.01 Long term (current) use of anticoagulants; Z79.82 Long term (current) use of aspirin; Z79.84 Long term (current) use of oral hypoglycemic drugs; Z79.891 Long term (current) use of opiate analgesic
CPT/HCPCS: 43235; 91110; J2704; J7120

== ENCOUNTER 2024-10-21 13:03 | Outpatient (CLI) | payer OTHER, MEDICARE, SELFPAY ==
--- NOTE | ~2024-10-21 | DEXA_ITS ---
Bone Density Report Name: FLAVIO RUIZ Age: 74 Sex: Female Ethnicity: White Date of : 1950 Indication: postmenopausal; screening for osteoporosis; height loss; prior fracture; Referring Provider: Milind Bennett Study: Bone densitometry was performed. Exam Date: October 21, 2024 Accession number: [id number] Bone Density: Region BMD T-score Z-score Classification AP Spine(L1, L2, L3) 0.831 -1.7 0.7 Osteopenia Femoral Neck (Left) 0.511 -3.0 -1.0 Osteoporosis Total Hip (Left) 0.683 -2.1 -0.3 Osteopenia Femoral Neck (Right) 0.467 -3.4 -1.4 Osteoporosis Total Hip (Right) 0.657 -2.3 -0.5 Osteopenia Femoral Neck Mean 0.489 -3.2 -1.2 Osteoporosis Total Hip Mean 0.670 -2.2 -0.4 Osteopenia World Health Organization criteria for BMD impression classify patients as: Normal (T-score at or above -1.0), Osteopenia (T-score between -1.0 and -2.5), or Osteoporosis (T-score at or below -2.5). 10-year Fracture Risk: FRAX not reported because: Some T-score for Spine Total or Hip Total or Femoral Neck at or below -2.5 Clinical Information Provided by Patient: Has had a low trauma fracture Has used the following medications: Vitamin D Patient maximum height was 65 Menopause Age: 48 No regular weight bearing exercise Does not regularly consume dairy products Drinks caffeinated beverages Onset of menses at age 10 Number of children 4 Impression: The patient has established osteoporosis, based on the Right Femoral Neck T-score and the existence of a prior fracture. The patient has risk factors, including: previous fracture. Discussion: HIGH RISK OF FRACTURE. BONE DENSITY IS UNDESIRABLY LOW AT ONE OR MORE SKELETAL SITES, CONSISTENT WITH POSTMENOPAUSAL OSTEOPOROSIS. This patient's lowest T-score, in a patient who has previously fractured, meets the World Health Organization's (WHO) criteria for severe osteoporosis. In untreated patients, the risk of osteoporotic fracture increases approximately two-fold for each 1.0 SD decrease in T-score. Low bone density is not the only risk factor for fracture; also consider factors such as patient's age, frailty or poor health, risk of falling, risk of injury, previous osteoporotic fracture, family history of osteoporosis, cigarette smoking, low body weight, etc. Not everyone with low bone mineral density has osteoporosis; osteomalacia and other metabolic bone disorders should also be considered. Patients who have osteoporosis should be evaluated for specific diseases and conditions (secondary causes) that may cause or contribute to bone loss. The [place] [employer]ocrinologists (AACE) and National Osteoporosis Foundation (NOF) recommend pharmacologic intervention for all postmenopausal women whose T-score is in this range. The patient should follow a healthful lifestyle (good nutrition with adequate calcium and vitamin D, and appropriate weight-bearing exercise). Follow-Up: Consider a repeat BMD and Vertebral Fracture Assessment (VFA) exam in 2 years or sooner if medically necessary, to reassess this patient's status. Reported by: JANICE on 10/21/2024 1:33:00 PM. Reviewed, dictated and finalized at location A.
== END 2024-10-21 13:04 | disposition home or self-care (01) ==
LOC: CHSIMG 13:12
PROVIDERS: PCP Emergency Medicine; Visit Provider Emergency Medicine
DX: E55.9 Vitamin D deficiency, unspecified (principal); M81.0 Age-related osteoporosis without current pathological fracture; M85.89 Other specified disorders of bone density and structure, multiple sites; Z78.0 Asymptomatic menopausal state; Z13.820 Encounter for screening for osteoporosis
CPT/HCPCS: 77080

== ENCOUNTER 2025-08-10 08:51 | Outpatient (CLI) | payer MEDICARE, SELFPAY ==
--- NOTE | ~2025-08-10 | XR_ITS ---
XR lumbar spine 2-3V Indication: M54.50 - Low back pain, unspecified Comparison: None Findings: Posterior fixation of L5 and S1 with disc prostheses, the hardware is intact. There is grade 1 anterolisthesis of L4 on L5 and L5 on S1. Minimal loss of the remaining disc heights. Soft tissues unremarkable Impression: No acute abnormality. Reviewed, dictated and finalized at location P. Impression: No acute abnormality.
--- NOTE | ~2025-08-10 | XR_ITS ---
XR thoracic spine 2V Indication: M54.6 - Pain in thoracic spine Comparison: None Findings: Moderate loss of vertebral height throughout, no fracture or subluxation. Severe loss of disc height throughout. Soft tissues unremarkable Impression: No acute abnormality. Reviewed, dictated and finalized at location P. Impression: No acute abnormality.
== END 2025-08-10 08:52 | disposition home or self-care (01) ==
LOC: MICIMG 08:53
PROVIDERS: PCP Emergency Medicine; Visit Provider Emergency Medicine
DX: M54.50 Low back pain, unspecified (principal); M54.6 Pain in thoracic spine; G89.29 Other chronic pain
CPT/HCPCS: 72070; 72100

== ENCOUNTER 2025-09-18 09:38 | Outpatient (CLI) | payer MEDICARE, SELFPAY ==
--- NOTE | ~2025-09-18 | XR_ITS ---
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 Findings: No acute fracture or malalignment. No significant degenerative changes. Soft tissues unremarkable. Impression: No acute fracture or malalignment. Reviewed, dictated and finalized at location P. IGHT KNIFE MACHINE CUTTER Impression: No acute fracture or malalignment.
== END 2025-09-18 09:39 | disposition home or self-care (01) ==
LOC: MICIMG 09:39
PROVIDERS: PCP Emergency Medicine; Visit Provider Emergency Medicine
DX: M25.552 Pain in left hip (principal)
CPT/HCPCS: 73502